=== PATIENT | female | born 1935 | race Caucasian/White ===

== ENCOUNTER 2020-06-14 14:33 | Inpatient (IN) ==
[2020-06-14] MEDS ORDERED: cefTRIAXone SODIUM 1,000 MG/50 ML BAG IV STA (15:16)
--- NOTE | 2020-06-14 15:20 | Emergency Department Note ---
Impression & Plan Acute pyelonephritis, Leukocytosis, Acute confusion, Acute right flank pain, Fever ED Provider Note NAME: RHONDA JEREZ AGE: 84 SEX: F : 1935 ARRIVES VIA: Ambulance INFORMANT: [Patient][daughter, staff] ED PROVIDER(S): [Jose Alonzo MD] CHIEF COMPLAINT: Fever, confusion HISTORY OF PRESENT ILLNESS: The patient is a an 84-year-old female who presents to the ER with a fever, some confusion and right flank pain. She had a strong smell to her urine. She seemed in pain when she urinated today. History from the patient is difficult as she does have some dementia. Most of the history was provided by staff and by her daughter. Patient does have a history of UTI, the family is concerned that she has this issue again. She has not fallen. She has not had cough or congestion or shortness of breath. The patient currently denies any pain. Of note, no further history obtainable given her dementia. REVIEW OF SYSTEMS: Unobtainable given her dementia. PMHx/PSHx: See Below SOCIAL HISTORY: See Below. PHYSICAL EXAM: GENERAL: Patient is in no acute distress. HEENT: No acute trauma, normocephalic atraumatic, mucous membranes moist, no nasal congestion, no scleral icterus. NECK: No stridor, no adenopathy, no meningismus, trachea is midline. LUNGS: Clear to auscultation bilaterally, no wheeze, no rhonchi, breath sounds equal. HEART: There is an irregular rhythm, no murmurs, the rate is normal. Back: Bilateral flank discomfort to percussion. ABDOMEN: Soft, nontender, bowel sounds positive, no hernias, no peritonitis. EXTREMITIES: No cyanosis or edema, full range of motion of all the joints without pain or difficulty, no signs for acute trauma. NEUROLOGIC: Awake and alert, confusion noted, no acute motor or sensory deficits, no focal weakness. SKIN: No rash, no jaundice, no diaphoresis. DIFFERENTIAL DIAGNOSIS: Infection, dehydration, metabolic abnormality, hypo/hyperglycemia, hydronephrosis, renal colic, pyelonephritis, UTI, sepsis, bacteremia, electrolyte disturbance, anemia, hypoxia, cardiac sources, intracerebral event, toxicologic, neurologic, as well as other pathologies. EMERGENCY DEPARTMENT COURSE/PROCEDURES: ECG: Indication was weakness. The ECG shows atrial fibrillation with some diffuse nonspecific ST change. The rate is 97. The QTc is 431. There are no PVCs. No ST elevation. No ECGs available for comparison. Continuous Cardiac Monitoring: An order was placed for continuous cardiac monitoring. The monitor shows a rate of 91 with atrial fibrillation. MEDICAL DECISION MAKING: There is a moderate leukocytosis at 14,000, this would be consistent with infection. There is a normal platelet count and hemoglobin. There is no significant electrolyte abnormality or kidney failure. Lactic acid level is not elevated making sepsis less likely. No worrisome liver enzyme elevation. TSH was slightly low. ECG shows atrial fibrillation, no acute ischemia. Cardiac enzyme testing x1 is not consistent with acute cardiac injury. Urinalysis is consistent with infection. Chest film does not show pneumonia or pneumothorax. There was no CHF. Abdominal and pelvis CT shows a possible proximal right u reteral stone with a double collecting system on the right. No hydronephrosis. The patient presents with fever, confusion, some back pain and urinary burning. She appears to have pyelonephritis by work-up. The possibility of a ureteral stone was also suggested. Given the fever, given the confusion, given the white count elevation, I do think a hospital stay is warranted. The patient received IV saline for hydration, she was given IV ceftriaxone. She does seem to be resting comfortably. I spoke to the patient and her daughter, I spoke with case management. The on- call hospitalist was consulted. Past Med/Surg History Medical History Atrial fibrillation Dementia Hypothyroidism Surgical History Surgical history unknown Social History Smoking Status: Never smoker marital status: Unknown Current Living Situation: Half-Way Feels Safe at Home: Yes Allergies Allergies Allergy/AdvReac Type Severity Reaction Status Date / Time latex Allergy Unknown Unknown Verified 06/14/20 17:44 Prkizrg-Qma-Hjs Reductase Allergy Unknown Unknown Verified 06/14/20 17:44 Inhibitor Home Meds Home Medications Medication Instructions Recorded Confirmed acetaminophen 325 - 650 mg PO Q4H PRN MDD 3 GMS 06/14/20 06/14/20 APAP/24 HOURS calcium citrate-vitamin D3 1 tab PO BID 06/14/20 06/14/20 [Calcium Citrate + D] citalopram 5 mg PO QAM 06/14/20 06/14/20 diltiazem HCl 120 mg PO QAM 06/14/20 06/14/20 fenofibrate nanocrystallized 145 mg PO QAM 06/14/20 06/14/20 folic acid 2 mg PO QAM 06/14/20 06/14/20 levothyroxine 75 mcg PO QAM 06/14/20 06/14/20 rivaroxaban [Xarelto] 15 mg PO QAM 06/14/20 06/14/20 tramadol 25 mg PO Q4H PRN 06/14/20 06/14/20 Results & Data (ED) Vital Signs Vital Signs - 24 hr 06/14/20 14:40 06/14/20 15:30 06/14/20 17:03 Temperature 37.3 C Temperature Source Oral Pulse Rate 72 Pulse Rate [Right] 102 H 91 H Respiratory Rate 20 20 20 Respiratory Effort / Characteristics Non-Labored Non-Labored Respiratory Depth Normal Normal Blood Pressure 156/82 H Blood Pressure [Right Arm] 172/131 H 148/87 H Blood Pressure Mean 106 Blood Pressure Mean [Right Arm] 144 107 Pulse Oximetry 93 95 95 Oxygen Delivery Method Room Air Room Air Room Air Sepsis Recent Fever Within 48 Hours No Sepsis New/Unexplained Change in Mental Status Yes Sepsis Action Taken by Nursing No Action Required 06/14/20 17:54 Temperature Temperature Source Pulse Rate Pulse Rate [Right] 102 H Respiratory Rate 24 Respiratory Effort / Characteristics Non-Labored Respiratory Depth Normal Blood Pressure Blood Pressure [Right Arm] 142/77 H Blood Pressure Mean Blood Pressure Mean [Right Arm] 98 Pulse Oximetry 93 Oxygen Delivery Method Room Air Sepsis Recent Fever Within 48 Hours Sepsis New/Unexplained Change in Mental Status Sepsis Action Taken by Half-Way Medications Current Medication List: was personally reviewed by me Laboratory Data Attestation: I reviewed the patient's lab results. Result diagrams: 06/14/20 16:19 06/14/20 16:19 Lab Results 06/14/20 06/14/20 06/14/20 Range/Units 16:00 16:19 16:19 WBC 14.45 H (4.8-10.8) K/uL RBC 4.77 (4.2-5.4) M/uL Hgb 14.3 (12.0-16.0) g/dL Hct 42.8 (37-47) % MCV 89.7 (80-100) fL MCH 30.0 (25-34) pg MCHC 33.4 (32-36) g/dL RDW Std Deviation 42.4 (36.4-46.3) fL RDW Coeff of John 12.9 (11.5-14.5) % Plt Count 365 (130-400) K/uL MPV 9.9 (7.4-10.4) fL Immature Gran % (Auto) 0.3 % Neut % (Auto) 82.5 % Lymph % (Auto) 5.6 % Stanley % (Auto) 11.4 % Eos % (Auto) 0.1 % Baso % (Auto) 0.1 % Neut # (Auto) 11.92 H (1.4-6.5) K/uL Lymph # (Auto) 0.81 L (1.2-3.4) K/uL Stanley # (Auto) 1.65 H (0.11-0.59) K/uL Eos # (Auto) 0.01 (0-0.5) K/uL Baso # (Auto) 0.02 (0-0.2) K/uL Immature Gran # (Auto) 0.04 H (0.00-0.02) K/uL Sodium (136-145) mmol/L Potassium (3.5-5.1) mmol/L Chloride (98-107) mmol/L Carbon Dioxide (21-32) mmol/L Anion Gap (3-11) BUN (7-18) mg/dl Creatinine (0.6-1.2) mg/dl Est Cr Clr Drug Dosing Est GFR ( Amer) Est GFR (Non-Af Amer) BUN/Creatinine Ratio (10-20) Glucose (70-99) mg/dl Lactate 1.8 (0.4-2.0) mmol/L Calcium (8.5-10.1) mg/dl Magnesium (1.8-2.4) mg/dl Total Bilirubin (0.2-1) mg/dl AST (15-37) U/L ALT (12-78) U/L Alkaline Phosphatase (45-117) U/L Troponin I (0-0.045) ng/ml Total Protein (6.4-8.2) gm/dl Albumin (3.4-5.0) gm/dl Globulin (2.5-4.0) gm/dl Albumin/Globulin Ratio (0.9-2) TSH (0.300-4.500) uIu/ml Free T4 (0.8-1.6) ng/dl Urine Color Yellow Urine Appearance Cloudy A (Clear) Urine pH 7.0 (4.5-7.5) Ur Specific [place] 1.015 (1.000-1.030) Urine Protein Negative (Negative) Urine Glucose (UA) Negative (Negative) Urine Ketones Negative (Negative) Urine Blood 2+ H (Negative) Urine Nitrite Positive A (Negative) Urine Bilirubin Negative (Negative) Urine Urobilinogen Negative (Negative) Ur Leukocyte Esterase Trace H (Negative) Urine WBC (Auto) 1-5 (0-5) /hpf Urine RBC (Auto) 10-30 H (0-4) /hpf U Hyaline Cast (Auto) 0 (0-5) /lpf U Epithel Cells (Auto) 5-10 H (0-5) /lpf Urine Bacteria (Auto) 4+ H (Negative) 06/14/20 Range/Units 16:19 WBC (4.8-10.8) K/uL RBC (4.2-5.4) M/uL Hgb (12.0-16.0) g/dL Hct (37-47) % MCV (80-100) fL MCH (25-34) pg MCHC (32-36) g/dL RDW Std Deviation (36.4-46.3) fL RDW Coeff of John (11.5-14.5) % Plt Count (130-400) K/uL MPV (7.4-10.4) fL Immature Gran % (Auto) % Neut % (Auto) % Lymph % (Auto) % Stanley % (Auto) % Eos % (Auto) % Baso % (Auto) % Neut # (Auto) (1.4-6.5) K/uL Lymph # (Auto) (1.2-3.4) K/uL Stanley # (Auto) (0.11-0.59) K/uL Eos # (Auto) (0-0.5) K/uL Baso # (Auto) (0-0.2) K/uL Immature Gran # (Auto) (0.00-0.02) K/uL Sodium 136 (136-145) mmol/L Potassium 3.6 (3.5-5.1) mmol/L Chloride 101 (98-107) mmol/L Carbon Dioxide 28 (21-32) mmol/L Anion Gap 7.0 (3-11) BUN 18 (7-18) mg/dl Creatinine 1.19 (0.6-1.2) mg/dl Est Cr Clr Drug Dosing Not Reportable Est GFR ( Amer) 48.9 Est GFR (Non-Af Amer) 42.2 BUN/Creatinine Ratio 15.1 (10-20) Glucose 133 H (70-99) mg/dl Lactate (0.4-2.0) mmol/L Calcium 9.8 (8.5-10.1) mg/dl Magnesium 2.0 (1.8-2.4) mg/dl Total Bilirubin 0.7 (0.2-1) mg/dl AST 16 (15-37) U/L ALT 15 (12-78) U/L Alkaline Phosphatase 58 (45-117) U/L Troponin I < 0.015 (0-0.045) ng/ml Total Protein 8.0 (6.4-8.2) gm/dl Albumin 3.5 (3.4-5.0) gm/dl Globulin 4.5 H (2.5-4.0) gm/dl Albumin/Globulin Ratio 0.8 L (0.9-2) TSH 0.249 L (0.300-4.500) uIu/ml Free T4 1.78 H (0.8-1.6) ng/dl Urine Color Urine Appearance (Clear) Urine pH (4.5-7.5) Ur Specific [place] (1.000-1.030) Urine Protein (Negative) Urine Glucose (UA) (Negative) Urine Ketones (Negative) Urine Blood (Negative) Urine Nitrite (Negative) Urine Bilirubin (Negative) Urine Urobilinogen (Negative) Ur Leukocyte Esterase (Negative) Urine WBC (Auto) (0-5) /hpf Urine RBC (Auto) (0-4) /hpf U Hyaline Cast (Auto) (0-5) /lpf U Epithel Cells (Auto) (0-5) /lpf Urine Bacteria (Auto) (Negative) Administered Medications Discontinued Medications Sodium Chloride (Nss) 500 mls @ 999 mls/hr IV .Q31M JODEE Stop: 06/14/20 16:00 Last Infusion: 06/14/20 17:17 Dose: 0 mls/hr Documented by: [id number] Admin: 06/14/20 16:45 Dose: 999 mls/hr Documented by: [id number] Ceftriaxone Sodium (Rocephin) 1,000 mg in 50 mls @ 100 mls/hr IV NOW STA Stop: 06/14/20 15:45 Last Infusion: 06/14/20 17:17 Dose: 0 mls/hr Documented by: [id number] Admin: 06/14/20 16:45 Dose: 100 mls/hr Documented by: [id number] Imaging Data Radiologist's Impression: SINGLE VIEW CHEST CLINICAL HISTORY: Generalized weakness. FINDINGS: An AP, portable, upright chest radiograph is obtained. No prior studies are available for comparison at the time of dictation. The examination is degraded by portable technique and patient rotation. The heart is mildly enlarged noting atherosclerotic calcification of the thoracic aorta. The pulmonary vasculature is noncongested. Question trace pleural effusions with left basilar atelectasis. No airspace consolidation is identified typical for pneumonia. No pneumothorax is seen. The skeletal structures are osteopenic. The bony thorax is grossly intact. IMPRESSION: 1. Mild cardiac enlargement with no acute cardiopulmonary abnormality. 2. Question trace pleural effusions. ABDOMEN AND PELVIS CT WITHOUT CONTRAST CT DOSE: 325.92 mGy.cm HISTORY: Acute right-sided flank pain right flank pain TECHNIQUE: Multiaxial CT images of the abdomen and pelvis were performed without contrast. A dose lowering technique was utilized adhering to the principles of ALARA. COMPARISON STUDY: Chest radiograph 06/14/2020, lumbar spine radiographs 04/23/2020. FINDINGS: Motion degraded exam. Trace pleural effusions. Moderate cardiomegaly with coronary artery calcifications. Mild subsegmental bibasilar ectasis. There is no pneumatosis or pneumoperitoneum. Limited evaluation of the solid abdominal organs without the use of IV contrast. Within the limitations of the study, the spleen, pancreas, adrenal glands, gallbladder and liver appear unremarkable. Probable cyst of the superior pole right kidney, 2.5 cm. Limited evaluation of the kidneys and ureters secondary to motion artifact. There is a 4 mm calcification medial to the right kidney. It is difficult to determine this is outside of the urinary tract or within the right ureterovesicular junction. 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 No appreciable hydronephrosis or hydroureter. Urinary bladder wall thickening with partial distention. Hystere ctomy. Indeterminate 2.2 x 2.4 cm left adnexal cystic lesion. Calcified plaque of the abdominal aorta with tortuosity. No adenopathy. No bowel obstruction. Colonic diverticulosis without acute diverticulitis. Mild fecal retention. Normal appendix. Unremarkable soft tissues. Lumbar levoscoliosis. De generative changes of the spine, pelvis and hips. IMPRESSION: 1. Limited exam secondary to motion artifact. 2. 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 Correlate with urinalysis findings. There is no significant hydroureter or hydronephrosis. 3. Trace pleural effusions. 4. Cardiomegaly. 5. No bowel obstruction or bowel wall thickening. Normal appendix. 6. Colonic diverticulosis. Blood Pressure Blood Pressure Findings: Elevated blood pressure Blood Pressure Disposition: further management by hospitalist Discharge Plan Visit Data Chief Complaint: Urinary Symptoms ED Provider: Jose Alonzo Discharge Problem: Acute pyelonephritis, Leukocytosis, Acute confusion, Acute right flank pain, Fever Patient Disposition: Admitted As Inpatient Condition: Good Forms Stand Alone Forms: [facility] [employer] Prescriptions Prescriptions: No Action acetaminophen 325 mg Tablet 325 - 650 mg PO Q4H MDD 3 GMS APAP/24 HOURS PRN (Reason: Fever Or Pain) RF: 0 citalopram 10 mg Tablet 5 mg PO QAM RF: 0 tramadol 50 mg Tablet 25 mg PO Q4H PRN (Reason: Pain) RF: 0 levothyroxine 75 mcg Tablet 75 mcg PO QAM RF: 0 folic acid 1 mg Tablet 2 mg PO QAM RF: 0 diltiazem HCl 120 mg Tablet Extended Release 24 Hr 120 mg PO QAM RF: 0 calcium citrate-vitamin D3 [Calcium Citrate + D] 315-200 mg-unit Tablet 1 tab PO BID RF: 0 fenofibrate nanocrystallized 145 mg Tablet 145 mg PO QAM RF: 0 Xarelto 15 mg Tablet 15 mg PO QAM RF: 0 Referrals Referrals: Darci, [Primary Care Provider] - Discharge Problem: Leukocytosis Qualifiers: Leukocytosis type: unspecified Qualified Code(s): D72.829 - Elevated white blood cell count, unspecified Fever Qualifiers: Fever type: unspecified Qualified Code(s): R50.9 - Fever, unspecified
[2020-06-14] MEDS ORDERED: SODIUM CHLORIDE 0.9% 500 ML IV SCH (15:30)
--- NOTE | 2020-06-14 15:37 | XRay Report ---
SINGLE VIEW CHEST CLINICAL HISTORY: Generalized weakness. FINDINGS: An AP, portable, upright chest radiograph is obtained. No prior studies are available for c omparison at the time of dictation. The examination is degraded by portable technique and patient rot ation. The heart is mildly enlarged noting atherosclerotic calcification of the thoracic aorta. The pulmonary vasculature is noncongested. Question trace pleural effusions with left basilar atelectasis . No airspace consolidation is identified typical for pneumonia. No pneumothorax is seen. The skeleta l structures are osteopenic. The bony thorax is grossly intact. IMPRESSION: 1. Mild cardiac enlargement with no acute cardiopulmonary abnormality. 2. Question trace pleural effusions. ACT 112: Negative or not required by law. Electronically signed by: Jose Alba M.D. 06/14/2020 3:36 PM
[2020-06-14 16:14] LABS: Appearance Urine Cloudy (Clear); Bacteria Urine Automated 4+ (Negative); Bilirubin Urine Negative (Negative); Blood Urine 2+ (Negative); Cast Urine Automated 0 /lpf (0-5); Color Urine Yellow; Glucose Urine UA Negative (Negative); Ketones Urine Negative (Negative); Leukocyte Esterase Urine Trace (Negative); Nitrite Urine Positive (Negative); Protein Urine Negative (Negative); Specific Gravity Urine 1.015 (1.000-1.030); Urobilinogen Urine Negative (Negative)
[2020-06-14 16:40] LABS: Basophils # (auto) 0.02 K/uL (0-0.2); Basophils % (auto) 0.1 %; Eosinophils # (auto) 0.01 K/uL (0-0.5); Eosinophils % (auto) 0.1 %; Hematocrit (blood only) 42.8 % (37-47); Hemoglobin 14.3 g/dL (12.0-16.0); Immature Granulocytes # (auto) 0.04 K/uL (0.00-0.02); Immature Granulocytes % (auto) 0.3 %; Lymphocytes # (auto) 0.81 K/uL (1.2-3.4); Lymphocytes % (auto) 5.6 %; Mean Corpuscular Hgb Conc 33.4 g/dL (32-36); Mean Corpuscular Volume 89.7 fL (80-100); Mean Platelet Volume 9.9 fL (7.4-10.4); Monocytes # (auto) 1.65 K/uL (0.11-0.59); Monocytes % (auto) 11.4 %; Neutrophils # (auto) 11.92 K/uL (1.4-6.5); Neutrophils % (auto) 82.5 %; Platelet Count 365 K/uL (130-400); RDW Coefficient of Variation 12.9 % (11.5-14.5); RDW Standard Deviation 42.4 fL (36.4-46.3); Red Blood Count 4.77 M/uL (4.2-5.4); White Blood Count 14.45 K/uL (4.8-10.8)
[2020-06-14 16:55] LABS: Alanine Aminotransferase 15 U/L (12-78); Albumin Level 3.5 gm/dl (3.4-5.0); Aspartate Aminotransferase 16 U/L (15-37); BUN Creatinine Ratio 15.1 (10-20); Blood Urea Nitrogen 18 mg/dl (7-18); Calcium 9.8 mg/dl (8.5-10.1); Carbon Dioxide 28 mmol/L (21-32); Chloride 101 mmol/L (98-107); Est GFR (African American) 48.9; Est GFR (Non-African American) 42.2; Glucose 133 mg/dl (70-99); Potassium 3.6 mmol/L (3.5-5.1); Sodium 136 mmol/L (136-145)
--- NOTE | 2020-06-14 16:58 | CT Scan Report ---
ABDOMEN AND PELVIS CT WITHOUT CONTRAST CT DOSE: 325.92 mGy.cm HISTORY: Acute right-sided flank pain right flank pain TECHNIQUE: Multiaxial CT images of the abdomen and pelvis were performed without contrast. A dose lo wering technique was utilized adhering to the principles of ALARA. COMPARISON STUDY: Chest radiograph 06/14/2020, lumbar spine radiographs 04/23/2020. FINDINGS: Motion degraded exam. Trace pleural effusions. Moderate cardiomegaly with coronary artery calcificati ons. Mild subsegmental bibasilar ectasis. There is no pneumatosis or pneumoperitoneum. Limited evaluation of the solid abdominal organs without the use of IV contrast. Within the limitatio ns of the study, the spleen, pancreas, adrenal glands, gallbladder and liver appear unremarkable. Pro bable cyst of the superior pole right kidney, 2.5 cm. Limited evaluation of the kidneys and ureters s econdary to motion artifact. There is a 4 mm calcification medial to the right kidney. It is difficul t to determine this is outside of the urinary tract or within the right ureterovesicular junction. 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 No ap preciable hydronephrosis or hydroureter. Urinary bladder wall thickening with partial distention. Hys terectomy. Indeterminate 2.2 x 2.4 cm left adnexal cystic lesion. Calcified plaque of the abdominal aorta with tortuosity. No adenopathy. No bowel obstruction. Colonic diverticulosis without acute diverticulitis. Mild fecal retention. Normal appendix. Unremarkable sof t tissues. Lumbar levoscoliosis. Degenerative changes of the spine, pelvis and hips. IMPRESSION: 1. Limited exam secondary to motion artifact. 2. 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 Correlate with urinalysis findings. There is no significant hydroureter or hydronephrosis. 3. Trace pleural effusions. 4. Cardiomegaly. 5. No bowel obstruction or bowel wall thickening. Normal appendix. 6. Colonic diverticulosis. ACT 112: Negative or not required by law. The above report was generated using voice recognition software. It may contain grammatical, syntax o r spelling errors. Electronically signed by: Obed Hi M.D. 06/14/2020 4:56 PM
[2020-06-14 17:05] LABS: Albumin Globulin Ratio 0.8 (0.9-2); Alkaline Phosphatase 58 U/L (45-117); Bilirubin,Total 0.7 mg/dl (0.2-1); Globulin 4.5 gm/dl (2.5-4.0); Thyroid Stimulating Hormone 0.249 uIu/ml (0.300-4.500); Troponin I < 0.015 ng/ml (0-0.045)
[2020-06-14 17:22] LABS: T4 Free Thyroxine 1.78 ng/dl (0.8-1.6)
--- NOTE | 2020-06-14 17:46 | History & Physical Report ---
Date of Service June 14, 2020 Assessment & Plan (1) Sepsis: Mostly resuscitated in ER. Some additional fluids ordered for overnight to aid in RVR. Cont ceftriazone pending clinical improvement and culture results. Lactate 1.8 (2) Acute pyelonephritis: UA positive. Cont ceftriaxone pending urine culture results and clinical improvement. (3) Acute metabolic encephalopathy: 2/2 sepsis and infection. Treating underlying illness. High risk for disorientation and sundowning overnight. Keep good day/night cycles. Reorient as needed. Avoid chemical restraint unless very last resort. (4) Chronic atrial fibrillation: slight elevation in HR to low 100s 2/2 acute infection and sepsis. Cont Dilt and Xarelto. (5) Dementia: ADR to [place] and donepezil in the past. Cont vit D supplementation and frequent reorientation. (6) Hypothyroidism: Cont Synthroid per home regimen. (7) Nephrolithiasis: consult Urology to consider this kidney stone in the setting of infection. No hydro seen. (8) Depression: Cont Celexa per home regimen. (9) DVT prophylaxis: Xarelto/SCDs DNR per discussion with daughter/POA Dispo-admit to telemetry DO Anam Walker Hospitalist History of Present Illness Chief Complaint: confusion, back pain Primary Care Provider: Rodolfo Gomes 84 yo F with dementia who presents per daughter's request to staff at [facility] for evaluation of progressive confusion and weakness of last few days. Daughter waves to her through the window each day and noticed these changes. For instance, the patient is a hearty eater and daughter noticed that her food tray was sitting across the room. The patient did not get up to obtain her tray. However, when staff came in and repositioned the food near her, she was eager to get up and ate heartily. Urine was foul-smelling and she was communicating flank pain. She is disoriented at baseline, however, daughter feels she is more confused than normal. Also daughter reported significant elevation in her pulse earlier, the patient was reportedly febrile prior to arrival. She has an elevation in WBC and a clear urinary infection with CVA tenderness bilaterally. She received 500cc saline and ceftriaxone 1gm IV. Lactate was normal. Daughter was at bedside and plan for admission was explained; she verbalized understanding. Allergies Allergy/AdvReac Type Severity Reaction Status Date / Time latex Allergy Unknown Unknown Verified 06/14/20 17:44 Fotqodt-Qxe-Qvr Reductase Allergy Unknown Unknown Verified 06/14/20 17:44 Inhibitor Home Medications Home Medications Medication Instructions Recorded Confirmed Type acetaminophen 325 - 650 mg PO Q4H PRN MDD 3 GMS 06/14/20 06/14/20 History APAP/24 HOURS calcium citrate-vitamin D3 1 tab PO BID 06/14/20 06/14/20 History [Calcium Citrate + D] citalopram 5 mg PO QAM 06/14/20 06/14/20 History diltiazem HCl 120 mg PO QAM 06/14/20 06/14/20 History fenofibrate nanocrystallized 145 mg PO QAM 06/14/20 06/14/20 History folic acid 2 mg PO QAM 06/14/20 06/14/20 History levothyroxine 75 mcg PO QAM 06/14/20 06/14/20 History rivaroxaban [Xarelto] 15 mg PO QAM 06/14/20 06/14/20 History tramadol 25 mg PO Q4H PRN 06/14/20 06/14/20 History Past Med/Surg History Medical History (Updated 06/14/20 @ 20:11 by Radha Ang DO) Atrial fibrillation Dementia Depression H/O: rheumatic fever Hypothyroidism Surgical History S/P DARRELL (total abdominal hysterectomy) Status post Mohs surgery Family History Sister Colorectal cancer Ovarian cancer Social History Smoking Status: Never smoker Hx Alcohol Use: Yes (rare) marital status: Unknown Current Living Situation: Snf Feels Safe at Home: Yes Review of Systems Review of Systems: Unobtainable due to mental health condition Physical Exam Physical Exam: CONSTITUTIONAL: WNWD, vitals as above, generally well- appearing EYES: pupils are round and equal bilaterally, normal conjunctivae, no scleral icterus ENT: oropharynx clear NECK: trachea midline RESPIRATORY: clear to auscultation bilaterally, no crackles, rales or wheezes, normal respiratory effort CARDIOVASCULAR: regular rate and rhythm, S1 and 2 heard without murmurs, gallops or rubs, no JVD, no peripheral edema GASTROINTESTINAL: normal bowel sounds, soft, nontender, nondistended. +CVA tenderness bilaterally MUSCULOSKELETAL: strength 5/5 throughout, head is normocephalic and atraumatic SKIN: warm and dry NEUROLOGIC: patellar DTRs 2+ bilat. No facial palsy, no dysarthria. Touch, pain and proprioception normal. CN 2-12 grossly intact, normal cognition, normal speech, no gross neuro deficits. Altered mental status. PSYCHIATRIC: alert cooperative disoriented. Results & Data Results & Data ([facility]) Vital Signs (Past 12 Hours) Vital Signs Temp Pulse Pulse Resp BP BP Pulse Ox 06/14/20 17:03 91 H 20 148/87 H 95 06/14/20 15:30 102 H 20 172/131 H 95 06/14/20 14:40 37.3 C 72 20 156/82 H 93 Laboratory Results Short CBC 06/14/20 Range/Units 16:19 WBC 14.45 H (4.8-10.8) K/uL Hgb 14.3 (12.0-16.0) g/dL Hct 42.8 (37-47) % Plt Count 365 (130-400) K/uL BMP 06/14/20 16:19 Sodium 136 Potassium 3.6 Chloride 101 Carbon Dioxide 28 BUN 18 Creatinine 1.19 Glucose 133 H Calcium 9.8 Cardiac Enzymes 06/14/20 Range/Units 16:19 Troponin I < 0.015 (0-0.045) ng/ml Liver Function 06/14/20 Range/Units 16:19 Total Bilirubin 0.7 (0.2-1) mg/dl AST 16 (15-37) U/L ALT 15 (12-78) U/L Alkaline Phosphatase 58 (45-117) U/L Albumin 3.5 (3.4-5.0) gm/dl Urine 06/14/20 Range/Units 16:00 Urine Color Yellow Urine Appearance Cloudy A (Clear) Urine pH 7.0 (4.5-7.5) Ur Specific [place] 1.015 (1.000-1.030) Urine Protein Negative (Negative) Urine Glucose (UA) Negative (Negative) Medications Administered NSS + ceftriaxone 1gm IV ECG Rhythm: atrial fibrillation Code Status & VTE Plan Code Status DNR per [facility] records. VTE Prophylaxis Plan VTE Prophylaxis will be ordered: Yes
[2020-06-14] MEDS ORDERED: ACETAMINOPHEN 325 MG TAB PO PRN ×2 (18:55→22:53)
[2020-06-14] MEDS ORDERED: POLYETHYLENE (MIRALAX) 17 GM PACK PO PRN (22:53)
[2020-06-15] MEDS: D5NSS + 20MEQ KCL 20 MEQ/1,000 ML BAG IV SCH ×3 (00:07→16:46)
[2020-06-15] MEDS: TRAMADOL HCL 50 MG TABLET PO PRN ×2 (00:07→04:27)
[2020-06-15] MEDS: PHENAZOPYRIDINE HCL 100 MG TAB PO PRN ×3 (00:12→13:18)
[2020-06-15] MEDS: CALCIUM 600MG + VIT D 400 IU TAB PO SCH ×3 (00:21→20:11)
[2020-06-15] MEDS ORDERED: LEVOTHYROXINE SODIUM 75 MCG TABLET PO SCH (06:30)
[2020-06-15 06:42] LABS: Hematocrit (blood only) 40.9 % (37-47); Hemoglobin 13.5 g/dL (12.0-16.0); Mean Corpuscular Hemoglobin 29.5 pg (25-34); Mean Corpuscular Volume 89.5 fL (80-100); Mean Platelet Volume 10.4 fL (7.4-10.4); Platelet Count 325 K/uL (130-400); RDW Coefficient of Variation 12.8 % (11.5-14.5); RDW Standard Deviation 41.9 fL (36.4-46.3); Red Blood Count 4.57 M/uL (4.2-5.4); White Blood Count 13.16 K/uL (4.8-10.8)
--- NOTE | 2020-06-15 07:19 | Electrocardiogram Report ---
Test Reason : Blood Pressure : / mmHG Vent. Rate : 097 BPM Atrial Rate : 468 BPM P-R Int : 000 ms QRS Dur : 088 ms QT Int : 340 ms P-R-T Axes : 000 -12 -57 degrees QTc Int : 431 ms Poor data quality, interpretation may be adversely affected Atrial fibrillation Low voltage QRS Nonspecific ST and T wave abnormality Abnormal ECG No previous ECGs available Confirmed by Anthony Suarez ([id number]) on 06/15/2020 7:18:51 AM Referred By: Darci Confirmed By:Anthony Suarez
[2020-06-15 07:21] LABS: BUN Creatinine Ratio 12.9 (10-20); Calcium 9.1 mg/dl (8.5-10.1); Est GFR (African American) 74.5; Est GFR (Non-African American) 64.3; Magnesium 1.9 mg/dl (1.8-2.4); Potassium 3.5 mmol/L (3.5-5.1)
[2020-06-15] MEDS ORDERED: dilTIAZem ER 120 MG CAPCR PO SCH (09:00)
[2020-06-15] MEDS: FOLIC ACID 1 MG TAB PO SCH (09:35)
[2020-06-15] MEDS: CITALOPRAM 20 MG TAB PO SCH (09:35)
[2020-06-15] MEDS: FENOFIBRATE NANOCRYSTALLIZED 145 MG TABLET PO SCH (09:36)
--- NOTE | 2020-06-15 12:53 | Urology Consultation ---
Date of Consultation June 15, 2020 Assessment & Plan (1) Sepsis: Mostly resuscitated in ER. Some additional fluids ordered for overnight to aid in RVR. Cont ceftriazone pending clinical improvement and culture results. Lactate 1.8 (2) Acute pyelonephritis: UA positive for E Coli. Cont ceftriaxone pending urine culture results and clinical improvement. (3) Nephrolithiasis: After reviewing the CT scan multiple times I'm not certain that this is a ureteral stone due to the lack of hydronephrosis and obstruction. I had a long conversation with her daughter discussing the options of intervening with a stent if this is a stone vs. following her clinically to see if she improves with antibiotics. She understands that the CT is equivacol for a stone. At this point, we are going to follow her clinical picture. I will check on her tomorrow again, if she doesn't improve or her condition worsens we may need to consider a right ureteral stent. History of Present Illness Attending Physician: Fab Bruner MD History of Present Illness Patient's daughter provides her history today. She reports that she was very sleepy at the half-way and then was sent to the ER both due to change in her vital signs and mental status changes. The patient is sleeping currently in the room. Her daughter states she has had numerous UTIs in the past. She also has dementia. +hysterectomy, 2 vaginal deliveries. No history of stones prior or any renal surgeries. She was febrile here - urine + E Coli. CT scan completed showing a possible stone on the right - there is no hydronephrosis. It's very difficult to follow her ureter - I'm not certain that the calcification is within the collecting system. She has some suprapubic pain but no flank pain. She has chronic back pain with even her foot dropping at times - this is long standing. Allergies Allergy/AdvReac Type Severity Reaction Status Date / Time latex Allergy Unknown Unknown Verified 06/14/20 17:44 [id number]-[id number] Reductase Allergy Unknown Unknown Verified 06/14/20 17:44 Inhibitor Home Medications Home Medications Medication Instructions Recorded Confirmed Type acetaminophen 325 - 650 mg PO Q4H PRN MDD 3 GMS 06/14/20 06/14/20 History APAP/24 HOURS calcium citrate-vitamin D3 1 tab PO BID 06/14/20 06/14/20 History [Calcium Citrate + D] citalopram 5 mg PO QAM 06/14/20 06/14/20 History diltiazem HCl 120 mg PO QAM 06/14/20 06/14/20 History fenofibrate nanocrystallized 145 mg PO QAM 06/14/20 06/14/20 History folic acid 2 mg PO QAM 06/14/20 06/14/20 History levothyroxine 75 mcg PO QAM 06/14/20 06/14/20 History rivaroxaban [Xarelto] 15 mg PO QAM 06/14/20 06/14/20 History tramadol 25 mg PO Q4H PRN 06/14/20 06/14/20 History Patient History Medical History (Updated 06/14/20 @ 20:11 by Radha Ang DO) Atrial fibrillation Dementia Depression H/O: rheumatic fever Hypothyroidism Surgical History S/P DARRELL (total abdominal hysterectomy) Status post Mohs surgery Family History Sister Colorectal cancer Ovarian cancer Social History Smoking Status: Never smoker Second Hand Exposure: Yes; Do You Dip or Chew Tobacco: No; Tobacco Cessation Education Requested by Patient: No Hx Alcohol Use: No Hx Substance Use: No Preferred Language: Hungarian Communication Ability: Impaired Communication Ability Comment: unabe to verbalize at times r/t dementia [employer] Required: No Beliefs That Will Affect Care: None marital status: Unknown Current Living Situation: Personal Care Facility Current Living Situation Comment: at [facility] Other Information That Helps Us Care for You: No Feels Safe at Home: Yes Safety Concerns: Feels Safe At This Time Review of Systems Review of Systems: Unobtainable due to cognitive status Physical Exam Physical Exam: she is sleeping during my time in the room - daughter reports that she has been awake on and off and not complaining of pain Constitutional: comfortable Results & Data ([facility]) Vital Signs (Past 12 Hours) Vital Signs Temp Pulse Pulse Resp BP Pulse Ox 06/15/20 11:27 36.3 C L 87 18 116/77 92 06/15/20 07:30 104 H 06/15/20 07:17 36.5 C 80 18 86/63 L 95 06/15/20 04:00 36.8 C 110 H 20 135/87 95 PG Care Time/CCT Total # of Minutes Spent Total Time Spent with Patient: Total time spent is greater than 50% in coordination of care (as documented) at patient's floor/unit and/or counseling patient: Coding Level of Care Code 80875 Initial Inpt Care Lvl 3 Diagnoses Sepsis A41.9 Acute pyelonephritis N10 Nephrolithiasis N20.0 Time Spent (min) 30
[2020-06-15] MEDS: cefTRIAXone SODIUM 1,000 MG in DEXTROSE 5% 50 ML IV SCH (16:46)
[2020-06-15] MEDS: RIVAROXABAN 15 MG TAB PO SCH (16:47)
--- NOTE | 2020-06-15 16:50 | Hospitalist Progress Note ---
Date of Service June 15, 2020 Assessment & Plan (1) Sepsis: (2) Acute pyelonephritis: Meet sepsis criteria on admission with tachycardia, elevated WBC UA positive for nitrite, Leukocytes and bacteria CT abd/pelvis showed renal collecting system on the right with an equivocal calculus of the superior pole moiety ureterovesicular junction, difficult to evaluate secondary to aforementioned limitations. WBC 14K on admission Continue IVF ceftriaxone Urine cx pending (3) Acute metabolic encephalopathy: Mostly due to acute illness Treating underlying illness. Keep good day/night cycles and reorient as needed. Avoid chemical restraint unless very last resort. (4) Chronic atrial fibrillation: Continue diltiazem and Xarelto. Continue monitor (5) Dementia: ADR to Nameda and donepezil in the past. Cont vit D supplementation and frequent reorientation. (6) Hypothyroidism: Cont Synthroid per home regimen. (7) Nephrolithiasis: CT abd pelvis showed 4 mm calcification medial to the right kidney. No hydronephrosis or hydroureter. Urology on board recommended conservative management with abx. If worsening or become febrile or painful, might consider for stent placement Continue monitor (8) Depression: Cont Celexa per home regimen. (9) DVT prophylaxis: Xarelto/SCDs CODE STATUS DNR Admission and Anticipated Discharge Date Admission Date: June 14, 2020 Subjective Pt was seen and examined Sitting in [place] with no distress Spoke with daughter today at bedside Pt denies any complaint Physical Exam Physical Exam: General- No acute distress Head- atraumatic Eyes- PERRL, EOMI, ENT- oropharynx clear Neck- supple, no JVD Lungs- clear to auscultation Heart- irregular rhythm; no murmur Abdomen- normal bowel sounds, soft, nontender Extremities- no calf tenderness Neuro- awake, confused Skin- warm & dry Results & Data Results & Data ([facility]) Vital Signs (Past 12 Hours) Vital Signs Temp Pulse Pulse Resp BP Pulse Ox 06/15/20 15:25 37.2 C 92 H 19 110/83 90 06/15/20 11:27 36.3 C L 87 18 116/77 92 06/15/20 07:30 104 H 06/15/20 07:17 36.5 C 80 18 86/63 L 95
[2020-06-16] MEDS ORDERED: ALBUMIN 25% 50 ML IV ONE (02:21)
[2020-06-16] MEDS ORDERED: MAGNESIUM SULFATE / D5W 1 GM/100 ML BAG IV ONE (02:21)
[2020-06-16] MEDS ORDERED: POTASSIUM CHLORIDE PWD 20 MEQ PACK PO STA (02:21)
[2020-06-16] MEDS ORDERED: DIGOXIN 250 MCG in SYRINGE 9 ML IV STA ×2 (02:26→05:25)
[2020-06-16] MEDS ORDERED: OLANZapine 10 MG/2.1 ML SDV IM STA ×2 (02:29→05:24)
[2020-06-16] MEDS ORDERED: METOPROLOL TARTRATE 1 MG/ML VIAL IV STA ×3 (02:29→06:26)
[2020-06-16 02:58] LABS: Basophils # (auto) 0.02 K/uL (0-0.2); Basophils % (auto) 0.1 %; Eosinophils # (auto) 0.09 K/uL (0-0.5); Eosinophils % (auto) 0.7 %; Hematocrit (blood only) 40.8 % (37-47); Hemoglobin 13.7 g/dL (12.0-16.0); Immature Granulocytes # (auto) 0.04 K/uL (0.00-0.02); Immature Granulocytes % (auto) 0.3 %; Lymphocytes # (auto) 1.92 K/uL (1.2-3.4); Lymphocytes % (auto) 14.2 %; Mean Corpuscular Hemoglobin 29.9 pg (25-34); Mean Corpuscular Hgb Conc 33.6 g/dL (32-36); Mean Corpuscular Volume 89.1 fL (80-100); Mean Platelet Volume 9.9 fL (7.4-10.4); Monocytes # (auto) 1.91 K/uL (0.11-0.59); Monocytes % (auto) 14.1 %; Neutrophils # (auto) 9.52 K/uL (1.4-6.5); Neutrophils % (auto) 70.6 %; Platelet Count 372 K/uL (130-400); RDW Coefficient of Variation 12.7 % (11.5-14.5); RDW Standard Deviation 41.4 fL (36.4-46.3); Red Blood Count 4.58 M/uL (4.2-5.4)
[2020-06-16 03:21] LABS: BUN Creatinine Ratio 9.8 (10-20); Calcium 9.1 mg/dl (8.5-10.1); Creatinine Clr Calc Pharmacy 42.5 ml/min; Est GFR (African American) 71.4; Est GFR (Non-African American) 61.6; Magnesium 1.7 mg/dl (1.8-2.4); Potassium 4.1 mmol/L (3.5-5.1)
[2020-06-16] MEDS ORDERED: dilTIAZem HCl 5 MG/ML 5 ML VIAL IV STA ×2 (03:33→04:38)
[2020-06-16] MEDS: POTASSIUM CHLORIDE / WTR 10 MEQ/100 ML PLCT IV SCH ×2 (04:02→04:03)
[2020-06-16] MEDS: LEVOTHYROXINE SODIUM 50 MCG TABLET PO SCH (04:51)
[2020-06-16] MEDS ORDERED: ACETAMINOPHEN 1,000 MG/100 ML VIAL IV STA (05:31)
[2020-06-16] MEDS ORDERED: dilTIAZem ER 120 MG CAPCR PO SCH (06:25)
[2020-06-16] MEDS: CITALOPRAM 20 MG TAB PO SCH (08:17)
[2020-06-16] MEDS: PHENAZOPYRIDINE HCL 100 MG TAB PO PRN ×2 (08:17→16:36)
[2020-06-16] MEDS: CALCIUM 600MG + VIT D 400 IU TAB PO SCH ×2 (08:17→20:32)
[2020-06-16] MEDS: FOLIC ACID 1 MG TAB PO SCH (08:17)
[2020-06-16] MEDS: FENOFIBRATE NANOCRYSTALLIZED 145 MG TABLET PO SCH (08:17)
--- NOTE | 2020-06-16 14:57 | Urology Progress Note ---
Date of Service June 16, 2020 Assessment & Plan (1) Sepsis: Mostly resuscitated in ER. On abx with hospitalists service (2) Acute pyelonephritis: UA positive for E Coli. Sensitive to everything but ampicillin (3) Nephrolithiasis: Patient's WBC is still elevated today - I was hoping to see a decrease. I spoke with the daughter on the phone today regarding proceeding with a stent. They are hesitant to move forward with interventions if she doesn't need this. I don't feel comfortable not exploring the potential stone further. I have ordered a CT - urogram phase to see if we can delineate the calcification vs. stone. Her daughter know that we may need to move forward with a stent if this is still inconclusive and I think she will be willing to do this. NPO after midnight incase she needs to have a stent placed. Admission and Anticipated Discharge Date Admission Date: June 14, 2020 Subjective Patient is sleeping alone in the room. She opens her eyes but does not communicate. Nursing and her family reports that she was more awake earlier today. I did call the patient's daughter and she reports that after she gets the tramadol she is very sleepy. Otherwise, she does have some times where she is more anxious -- unsure if this is pain or sundowning. No blood in the urine. Review of Systems Review of Systems: Unobtainable due to cognitive status Physical Exam Constitutional: healthy appearing, comfortable and + lethargic Gastrointestinal (Abdomen): Percussion/Palpation: abdomen soft Results & Data ([facility]) Vital Signs (Past 12 Hours) Vital Signs Temp Pulse Pulse Resp BP BP Pulse Ox 06/16/20 11:14 36.4 C L 86 18 102/68 93 06/16/20 07:36 101 H 06/16/20 07:16 36.7 C 100 H 18 115/77 90 06/16/20 06:00 101 H 06/16/20 05:52 160 H 06/16/20 05:46 157 H 142/88 H 06/16/20 05:27 148 H 142/88 H 06/16/20 04:07 37.0 C 118 H 18 162/86 H 91 06/16/20 02:56 182 H 138/72 PG Care Time/CCT Total # of Minutes Spent Total Time Spent with Patient: Total time spent is greater than 50% in coordination of care (as documented) at patient's floor/unit and/or counseling patient: Coding Level of Care Code 90588 Inpt Consult Level 5 History Problem Focused Exam Problem Focused Medical Decision Making High Complexity Diagnoses Sepsis A41.9 Acute pyelonephritis N10 Nephrolithiasis N20.0 Time Spent (min) 30
[2020-06-16] MEDS: cefTRIAXone SODIUM 1,000 MG in DEXTROSE 5% 50 ML IV SCH (16:36)
[2020-06-16] MEDS: RIVAROXABAN 15 MG TAB PO SCH (16:36)
--- NOTE | 2020-06-16 17:57 | Hospitalist Progress Note ---
Date of Service June 16, 2020 Assessment & Plan (1) Sepsis: (2) Acute pyelonephritis: Meet sepsis criteria on admission with tachycardia, elevated WBC UA positive for nitrite, Leukocytes and bacteria CT abd/pelvis showed renal collecting system on the right with an equivocal calculus of the superior pole moiety ureterovesicular junction, difficult to evaluate secondary to aforementioned limitations. WBC 14K on admission Urine cx grew Ecoli Continue IVF ceftriaxone, will transition to PO on discharge (3) Acute metabolic encephalopathy: Mostly due to acute illness Treating underlying illness. Keep good day/night cycles and reorient as needed. Avoid chemical restraint unless very last resort. (4) Chronic atrial fibrillation: Continue diltiazem and Xarelto. Continue monitor (5) Dementia: ADR to Nameda and donepezil in the past. Cont vit D supplementation and frequent reorientation. (6) Hypothyroidism: Cont Synthroid per home regimen. (7) Nephrolithiasis: CT abd pelvis showed 4 mm calcification medial to the right kidney. No hydronephrosis or hydroureter. Urology on board recommended conservative management with abx. If worsening or become febrile or painful, might consider for stent placement CT - urogram ordered by urology check for calcification vs. stone Will make NPO after midnight in case CT showed a stone for stent removal (8) Depression: Cont Celexa per home regimen. (9) DVT prophylaxis: Xarelto/SCDs CODE STATUS DNR Admission and Anticipated Discharge Date Admission Date: June 14, 2020 Subjective Pt was seen and examined Lying in bed with no distress with son at bedside feeding her Pt looks more awake today Denies any pain Physical Exam Physical Exam: General- No acute distress Head- atraumatic Eyes- PERRL, EOMI, ENT- oropharynx clear Neck- supple, no JVD Lungs- clear to auscultation Heart- irregular rhythm; no murmur Abdomen- normal bowel sounds, soft, nontender Extremities- no calf tenderness Neuro- awake, confused Skin- warm & dry Results & Data Results & Data ([facility]) Vital Signs (Past 12 Hours) Vital Signs Temp Pulse Pulse Resp BP Pulse Ox 06/16/20 16:16 36.7 C 103 H 19 139/84 94 06/16/20 11:14 36.4 C L 86 18 102/68 93 06/16/20 07:36 101 H 06/16/20 07:16 36.7 C 100 H 18 115/77 90 06/16/20 06:00 101 H
[2020-06-16] MEDS ORDERED: IOVERSOL 100ml IV ONE (18:21)
--- NOTE | 2020-06-16 19:05 | CT Scan Report ---
CT abdomen pelvis wo/w con HISTORY: 84 years-old Female urogram to see if stone is in ureter, COMBO PER JRB follow-up study in a patient with possible distal right ureteral calculus. COMPARISON: CT abdomen and pelvis 06/14/2020 TECHNIQUE: Multiple axial CT images of the abdomen and pelvis were obtained both with and without the use of 94 Optiray 320 utilizing hematuria protocol with delayed postcontrast imaging. A dose lowerin g technique was used consistent with the principals of RANDOLPH. FINDINGS: Motion degraded exam. Trace pleural effusions with bibasilar atelectasis. Moderate cardiomegaly with coronary artery calcifications. Mild subsegmental bibasilar ectasis. There is no pneumatosis or pneum operitoneum. The spleen, pancreas, adrenal glands, and liver appear unremarkable. 7 mm hypodensity of the left hep atic lobe suggests probable cyst. Contracted gallbladder. Probable cyst of the superior pole right ki dney, 2.5 cm. 5 mm hypodensity of the inferior pole left kidney suggest probable cyst. Limited evalua tion of the kidneys and ureters secondary to motion artifact. There is a 4 mm calcification medial to the right kidney redemonstrated is vascular in origin. There is mild symmetric dilation of the bilat eral renal pelves and ureters. 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 The delayed images demonstrate contrast pooling within the domenic ecting systems and renal pelves. No definite filling defects identified. Additional delayed set of im ages was obtained through the pelvis, again demonstrating nonopacification of the distal ureters. Mod erate urinary bladder distention. Hysterectomy. Indeterminate 2.2 x 2.4 cm left adnexal cystic lesion . Calcified plaque of the abdominal aorta with tortuosity. No adenopathy. No bowel obstruction. Colonic diverticulosis without acute diverticulitis. Mild fecal retention. Normal appendix. Unremarkable sof t tissues. Lumbar levoscoliosis. Degenerative changes of the spine, pelvis and hips. IMPRESSION: 1. Motion degraded exam. 2. The previously described calcification medial to the right kidney is vascular in origin. No urolit h identified. 3. Moderate urinary bladder distention with mild symmetric dilation of the ureters and renal pelves. These findings are likely physiologic secondary to the degree of urinary bladder retention. Recommend voiding. 4. Suboptimal opacification of the ureters likely secondary to decreased renal function. No urothelia l mass lesion identified. 5. Colonic diverticulosis. 6. Trace pleural effusions. 7. Additional findings as above. ACT 112: Negative or not required by law. The above report was generated using voice recognition software. It may contain grammatical, syntax o r spelling errors. Electronically signed by: Obed Hi M.D. 06/16/2020 7:04 PM
[2020-06-16] MEDS ORDERED: dilTIAZem HCL 30 MG TAB PO ONE (19:17)
[2020-06-17] MEDS: LEVOTHYROXINE SODIUM 50 MCG TABLET PO SCH (05:40)
[2020-06-17 07:19] LABS: Hematocrit (blood only) 41.1 % (37-47); Hemoglobin 13.3 g/dL (12.0-16.0); Mean Corpuscular Hemoglobin 29.2 pg (25-34); Mean Corpuscular Hgb Conc 32.4 g/dL (32-36); Mean Corpuscular Volume 90.1 fL (80-100); Mean Platelet Volume 10.3 fL (7.4-10.4); Platelet Count 369 K/uL (130-400); RDW Coefficient of Variation 12.7 % (11.5-14.5); RDW Standard Deviation 41.7 fL (36.4-46.3); Red Blood Count 4.56 M/uL (4.2-5.4); White Blood Count 9.12 K/uL (4.8-10.8)
[2020-06-17 07:35] LABS: BUN Creatinine Ratio 11.8 (10-20); Calcium 9.4 mg/dl (8.5-10.1); Creatinine Clr Calc Pharmacy 35.9 ml/min; Est GFR (African American) 58.2; Est GFR (Non-African American) 50.2; Potassium 3.7 mmol/L (3.5-5.1)
[2020-06-17] MEDS: CALCIUM 600MG + VIT D 400 IU TAB PO SCH ×2 (13:02→20:16)
[2020-06-17] MEDS: CITALOPRAM 20 MG TAB PO SCH (13:02)
[2020-06-17] MEDS: FOLIC ACID 1 MG TAB PO SCH (13:03)
[2020-06-17] MEDS: FENOFIBRATE NANOCRYSTALLIZED 145 MG TABLET PO SCH (13:03)
[2020-06-17] MEDS: dilTIAZem ER 180 MG CAPCR PO SCH (13:03)
[2020-06-17] MEDS: RIVAROXABAN 15 MG TAB PO SCH (15:41)
--- NOTE | 2020-06-17 15:45 | Hospitalist Progress Note ---
Date of Service June 17, 2020 Assessment & Plan (1) Sepsis: (2) Acute pyelonephritis: Meet sepsis criteria on admission with tachycardia, elevated WBC UA positive for nitrite, Leukocytes and bacteria CT abd/pelvis showed renal collecting system on the right with an equivocal calculus of the superior pole moiety ureterovesicular junction, difficult to evaluate secondary to aforementioned limitations. WBC 14K on admission, now normalized at 9K Urine cx grew Ecoli Continue IVF ceftriaxone, will transition to PO Keflex to complete the course of the antibiotic (3) Acute metabolic encephalopathy: Mostly due to acute illness Treating underlying illness. Keep good day/night cycles and reorient as needed. Avoid chemical restraint unless very last resort. (4) Chronic atrial fibrillation: Continue diltiazem and Xarelto. Continue monitor (5) Dementia: ADR to Nameda and donepezil in the past. Cont vit D supplementation and frequent reorientation. (6) Hypothyroidism: Cont Synthroid per home regimen. (7) Nephrolithiasis: CT abd pelvis showed 4 mm calcification medial to the right kidney. No hydronephrosis or hydroureter. Urology on board recommended conservative management with abx. If worsening or become febrile or painful, might consider for stent placement CT - urogram showed Suboptimal opacification of the ureters likely secondary to decreased renal function. No urothelial mass lesion identified. No calculus noted No indication for stent Case discussed with urology Dr. Acevedo that recommended to keep the raygoza cath until seeing urology in the office (8) Depression: Cont Celexa per home regimen. (9) DVT prophylaxis: Xarelto/SCDs CODE STATUS DNR Admission and Anticipated Discharge Date Admission Date: June 14, 2020 Subjective Pt was seen and examined Lying in bed with no distress Pt said that she feels fine Denies any chest pain, palpitation, dizziness and SOB Physical Exam Physical Exam: General- No acute distress Head- atraumatic Eyes- PERRL, EOMI, ENT- oropharynx clear Neck- supple, no JVD Lungs- clear to auscultation Heart- irregular rhythm; no murmur Abdomen- normal bowel sounds, soft, nontender Extremities- no calf tenderness Neuro- awake, confused Skin- warm & dry Results & Data Results & Data ([facility]) Vital Signs (Past 12 Hours) Vital Signs Temp Pulse Pulse Resp BP Pulse Ox 06/17/20 15:34 36.9 C 103 H 18 124/74 93 06/17/20 11:58 36.7 C 94 H 20 145/93 H 97 06/17/20 08:42 37 C 98 H 20 107/69 91 06/17/20 07:25 86 06/17/20 03:45 36.5 C 77 17 133/85 96
[2020-06-17] MEDS: cefTRIAXone SODIUM 1,000 MG in DEXTROSE 5% 50 ML IV SCH (17:09)
[2020-06-18] MEDS: LEVOTHYROXINE SODIUM 50 MCG TABLET PO SCH (06:40)
[2020-06-18] MEDS: CALCIUM 600MG + VIT D 400 IU TAB PO SCH (08:13)
[2020-06-18] MEDS: FOLIC ACID 1 MG TAB PO SCH (08:14)
[2020-06-18] MEDS: dilTIAZem ER 180 MG CAPCR PO SCH (08:15)
[2020-06-18] MEDS: CITALOPRAM 20 MG TAB PO SCH (08:15)
[2020-06-18] MEDS: FENOFIBRATE NANOCRYSTALLIZED 145 MG TABLET PO SCH (08:16)
--- NOTE | 2020-06-18 09:58 | Urology Progress Note ---
Date of Service June 18, 2020 Assessment & Plan (1) Acute pyelonephritis: Clinically improved No labs yet today, but her white count had improved yesterday Discussed continued observation with the patient and her daughterthey are both very much in agreement with this Continue antibiotics and IV fluids, call if further issues, I think expectant management would be reasonable for the future Admission and Anticipated Discharge Date Admission Date: June 14, 2020 Subjective Visit with the patient and her daughter today Subjectively seems to be improved Her daughter reports that she is much less combative and better behaved She denies any pain or discomfort Afebrile now for 24+ hours Physical Exam Constitutional: well developed and well nourished Respiratory: no respiratory distress Cardiovascular: Extremities: no pedal edema Gastrointestinal (Abdomen): Inspection/Auscultation: abdomen normal to inspection Results & Data ([facility]) Vital Signs (Past 12 Hours) Vital Signs Temp Pulse Resp BP Pulse Ox 06/18/20 07:34 36.4 C L 98 H 16 143/92 H 95 06/18/20 04:40 36.7 C 92 H 18 123/86 95 06/17/20 23:47 37.1 C 84 20 118/78 93 PG Care Time/CCT Total # of Minutes Spent Total Time Spent with Patient: Total time spent is greater than 50% in coordination of care (as documented) at patient's floor/unit and/or counseling patient: Coding Level of Care Code 18048 Subseq Hosp Care Lvl 2 Diagnoses Acute pyelonephritis N10
--- NOTE | 2020-06-18 16:01 | Hospitalist Progress Note ---
Date of Service June 18, 2020 Assessment & Plan (1) Sepsis: (2) Acute pyelonephritis: Meet sepsis criteria on admission with tachycardia, elevated WBC UA positive for nitrite, Leukocytes and bacteria CT abd/pelvis showed renal collecting system on the right with an equivocal calculus of the superior pole moiety ureterovesicular junction, difficult to evaluate secondary to aforementioned limitations. WBC 14K on admission, now normalized at 9K Urine cx grew Ecoli Continue IVF ceftriaxone, will transition to PO Keflex to complete 14 days course of antibiotic (3) Acute metabolic encephalopathy: Mostly due to acute illness Treating underlying illness. Keep good day/night cycles and reorient as needed. Avoid chemical restraint unless very last resort. Stable (4) Chronic atrial fibrillation: Diltiazem increased to 180mg Continue Xarelto. Continue monitor (5) Dementia: ADR to Nameda and donepezil in the past. Cont vit D supplementation and frequent reorientation. Stable (6) Hypothyroidism: Cont Synthroid per home regimen. (7) Nephrolithiasis: CT abd pelvis showed 4 mm calcification medial to the right kidney. No hydronephrosis or hydroureter. Urology on board recommended conservative management with abx. If worsening or become febrile or painful, might consider for stent placement CT - urogram showed Suboptimal opacification of the ureters likely secondary to decreased renal function. No urothelial mass lesion identified. No calculus noted No indication for stent Case discussed with urology Dr. Acevedo that recommended to keep the raygoza cath until seeing urology in the office Follow up with urology in 1 week (8) Depression: Cont Celexa per home regimen. (9) DVT prophylaxis: Xarelto/SCDs CODE STATUS DNR Admission and Anticipated Discharge Date Admission Date: June 14, 2020 Subjective Pt was seen and examined Lying in bed with no distress Looks comfortable in bed Denies any chest pain, palpitation, dizziness and SOB Physical Exam Physical Exam: General- No acute distress Head- atraumatic Eyes- PERRL, EOMI, ENT- oropharynx clear Neck- supple, no JVD Lungs- clear to auscultation Heart- irregular rhythm; no murmur Abdomen- normal bowel sounds, soft, nontender Extremities- no calf tenderness Neuro- awake, confused Skin- warm & dry Results & Data Results & Data ([facility]) Vital Signs (Past 12 Hours) Vital Signs Temp Pulse Pulse Resp BP Pulse Ox 06/18/20 15:47 36.4 C L 74 22 96/69 L 92 06/18/20 15:46 36.7 C 83 18 143/78 H 93 06/18/20 15:28 88 06/18/20 11:41 36.7 C 83 18 143/78 H 93 06/18/20 07:34 36.4 C L 98 H 16 143/92 H 95 06/18/20 04:40 36.7 C 92 H 18 123/86 95
[2020-06-18] MEDS ORDERED: cephALEXin 500 MG CAP PO SCH (16:30)
--- NOTE | 2020-06-20 01:37 | Discharge Summary ---
Date of Service June 18, 2020 Admission HPI Per Admitting Provider 84 yo F with dementia who presents per daughter's request to staff at [facility] for evaluation of progressive confusion and weakness of last few days. Daughter waves to her through the window each day and noticed these changes. For instance, the patient is a hearty eater and daughter noticed that her food tray was sitting across the room. The patient did not get up to obtain her tray. However, when staff came in and repositioned the food near her, she was eager to get up and ate heartily. Urine was foul-smelling and she was communicating flank pain. She is disoriented at baseline, however, daughter feels she is more confused than normal. Also daughter reported significant elevation in her pulse earlier, the patient was reportedly febrile prior to arrival. She has an elevation in WBC and a clear urinary infection with CVA tenderness bilaterally. She received 500cc saline and ceftriaxone 1gm IV. Lactate was normal. Daughter was at bedside and plan for admission was explained; she verbalized unde rstanding. Admission Exam Per Admitting Provider CONSTITUTIONAL: WNWD, vitals as above, generally well-appearing EYES: pupils are round and equal bilaterally, normal conjunctivae, no scleral icterus ENT: oropharynx clear NECK: trachea midline RESPIRATORY: clear to auscultation bilaterally, no crackles, rales or wheezes, normal respiratory effort CARDIOVASCULAR: regular rate and rhythm, S1 and 2 heard without murmurs, gallops or rubs, no JVD, no peripheral edema GASTROINTESTINAL: normal bowel sounds, soft, nontender, nondistended. +CVA tenderness bilaterally MUSCULOSKELETAL: strength 5/5 throughout, head is normocephalic and atraumatic SKIN: warm and dry NEUROLOGIC: patellar DTRs 2+ bilat. No facial palsy, no dysarthria. Touch, pain and proprioception normal. CN 2-12 grossly intact, normal cognition, normal speech, no gross neuro deficits. Altered mental status. PSYCHIATRIC: alert cooperative disoriented. Principal Diagnosis (1) Sepsis: (2) Acute pyelonephritis: (3) Acute metabolic encephalopathy: (4) Chronic atrial fibrillation: (5) Dementia: (6) Hypothyroidism: (7) Nephrolithiasis (8) Depression: Discharge Exam General- No acute distress Head- atraumatic Eyes- PERRL, EOMI, ENT- oropharynx clear Neck- supple, no JVD Lungs- clear to auscultation Heart- irregular rhythm; no murmur Abdomen- normal bowel sounds, soft, nontender Extremities- no calf tenderness Neuro- awake, confused Skin- warm & dry Discharge Data Allergies Allergy/AdvReac Type Severity Reaction Status Date / Time latex Allergy Unknown Unknown Verified 06/14/20 17:44 [id number]-Gll-Tft Reductase Allergy Unknown Unknown Verified 06/14/20 17:44 Inhibitor Consultations 06/14/20 18:02 ED Decision to Admit Stat 06/14/20 22:53 Consult Urology Routine 06/17/20 08:51 Consult Case Management - Discharge Planning Routine Ordered Studies 06/14/20 15:16 CT abd pelvis wo con Stat 06/16/20 14:49 CT abdomen pelvis wo/w con Routine CT abdomen pelvis wo/w con HISTORY: 84 years-old Female urogram to see if stone is in ureter, COMBO PER JRB follow-up study in a patient with possible distal right ureteral calculus. COMPARISON: CT abdomen and pelvis 06/14/2020 TECHNIQUE: Multiple axial CT images of the abdomen and pelvis were obtained both with and without the use of 94 Optiray 320 utilizing hematuria protocol with delayed postcontrast imaging. A dose lowering technique was used consistent with the principals of [place]. FINDINGS: Motion degraded exam. Trace pleural effusions with bibasilar atelectasis. Moderate cardiomegaly with coronary artery calcifications. Mild subsegmental bibasilar ectasis. There is no pneumatosis or pneumoperitoneum. The spleen, pancreas, adrenal glands, and liver appear unremarkable. 7 mm hypodensity of the left hepatic lobe suggests probable cyst. Contracted ga llbladder. Probable cyst of the superior pole right kidney, 2.5 cm. 5 mm hypodensity of the inferior pole left kidney suggest probable cyst. Limited evaluation of the kidneys and ureters secondary to motion artifact. There is a 4 mm calcification medial to the right kidney redemonstrated is vascular in origin. There is mild symmetric dilation of the bilateral renal pelves and ureters. 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 The delayed images demonstrate contrast pooling within the collecting systems and renal pelves. No definite filling defects identified. Additional delayed set of images was obtained through the pelvis, again demonstrating nonopacification of the distal ureters. Moderate urinary bladder distention. Hysterectomy. Indeterminate 2.2 x 2.4 cm left adnexal cystic lesion. Calcified plaque of the abdominal aorta with tortuosity. No adenopathy. No bowel obstruction. Colonic diverticulosis without acute diverticulitis. Mild fecal retention. Normal appendix. Unremarkable soft tissues. Lumbar levoscoliosis. Degenerative changes of the spine, pelvis and hips. IMPRESSION: 1. Motion degraded exam. 2. The previously described calcification medial to the right kidney is vascular in origin. No urolith identified. 3. Moderate urinary bladder distention with mild symmetric dilation of the ureters and renal pelves. These findings are likely physiologic secondary to the degree of urinary bladder retention. Recommend voiding. 4. Suboptimal opacification of the ureters likely secondary to decreased renal function. No urothelial mass lesion identified. 5. Colonic diverticulosis. 6. Trace pleural effusions. 7. Additional findings as above. ACT 112: Negative or not required by law. The above report was generated using voice recognition software. It may contain grammatical, syntax or spelling errors. Electronically signed by: Obed Hi M.D. 06/16/2020 7:04 PM Dictated: 06/16/201850 Transcribed: 06/16/201850 SINGLE VIEW CHEST CLINICAL HISTORY: Generalized weakness. FINDINGS: An AP, portable, upright chest radiograph is obtained. No prior studies are available for comparison at the time of dictation. The examination is degraded by portable technique and patient rotation. The heart is mildly enlarged noting atherosclerotic calcification of the thoracic aorta. The pulm onary vasculature is noncongested. Question trace pleural effusions with left basilar atelectasis. No airspace consolidation is identified typical for pneumonia. No pneumothorax is seen. The skeletal structures are osteopenic. The bony thorax is grossly intact. IMPRESSION: 1. Mild cardiac enlargement with no acute cardiopulmonary abnormality. 2. Question trace pleural effusions. ACT 112: Negative or not required by law. Electronically signed by: Jose Alba M.D. 06/14/2020 3:36 PM Dictated: 06/14/20 1534 Transcribed: 06/14/[address] WITHOUT CONTRAST CT DOSE: 325.92 mGy.cm HISTORY: Acute right-sided flank pain right flank pain TECHNIQUE: Multiaxial CT images of the abdomen and pelvis were performed without contrast. A dose lowering technique was utilized adhering to the principles of ALARA. COMPARISON STUDY: Chest radiograph 06/14/2020, lumbar spine radiographs 04/23/2020. FINDINGS: Motion degraded exam. Trace pleural effusions. Moderate cardiomegaly with coronary artery calcifications. Mild subsegmental bibasilar ectasis. There is no pneumatosis or pneumoperitoneum. Limited evaluation of the solid abdominal organs without the use of IV contrast. Within the limitations of the study, the spleen, pancreas, adrenal glands, gallbladder and liver appear unremarkable. Probable cyst of the superior pole right kidney, 2.5 cm. Limited evaluation of the kidneys and ureters secondary to motion artifact. There is a 4 mm calcification medial to the right kidney. It is difficult to determine this is outside of the urinary tract or within the right ureterovesicular junction. 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 No appreciable hydronephrosis or hydroureter. Urinary bladder wall thickening with partial distention. Hysterectomy. Indeterminate 2.2 x 2.4 cm left adnexal cystic lesion. Calcified plaque of the abdominal aorta with tortuosity. No adenopathy. No bowel obstruction. Colonic diverticulosis without acute diverticulitis. Mild fecal retention. Normal appendix. Unremarkable soft tissues. Lumbar levoscoliosis. Degenerative changes of the spine, pelvis and hips. IMPRESSION: 1. Limited exam secondary to motion artifact. 2. 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 Correlate with urinalysis findings. There is no significant hydroureter or hydronephrosis. 3. Trace pleural effusions. 4. Cardiomegaly. 5. No bowel obstruction or bowel wall thickening. Normal appendix. 6. Colonic diverticulosis. ACT 112: Negative or not required by law. The above report was generated using voice recognition software. It may contain grammatical, syntax or spelling errors. Electronically signed by: Obed Hi M.D. 06/14/2020 4:56 PM Dictated: 06/14/201649 Transcribed: 06/14/201649 Hospital Course (1) Sepsis: (2) Acute pyelonephritis: Meet sepsis criteria on admission with tachycardia, elevated WBC UA positive for nitrite, Leukocytes and bacteria CT abd/pelvis showed renal collecting system on the right with an equivocal calculus of the superior pole moiety ureterovesicular junction, difficult to evaluate secondary to aforementioned limitations. WBC 14K on admission, now normalized at 9K Urine cx grew Ecoli Continue IVF ceftriaxone, will transition to PO Keflex to complete 14 days course of antibiotic (3) Acute metabolic encephalopathy: Mostly due to acute illness Treating underlying illness. Keep good day/night cycles and reorient as needed. Avoid chemical restraint unless very last resort. Stable (4) Chronic atrial fibrillation: Diltiazem increased to 180mg Continue Xarelto. Continue monitor (5) Dementia: ADR to [place] and donepezil in the past. Cont vit D supplementation and frequent reorientation. Stable (6) Hypothyroidism: Cont Synthroid per home regimen. (7) Nephrolithiasis: CT abd pelvis showed 4 mm calcification medial to the right kidney. No hydronephrosis or hydroureter. Urology on board recommended conservative management with abx. If worsening or become febrile or painful, might consider for stent placement CT - urogram showed Suboptimal opacification of the ureters likely secondary to decreased renal function. No urothelial mass lesion identified. No calculus noted No indication for stent Case discussed with urology Dr. Acevedo that recommended to keep the raygoza cath until seeing urology in the office Follow up with urology in 1 week (8) Depression: Cont Celexa per home regimen. (9) DVT prophylaxis: Xarelto/SCDs CODE STATUS DNR Total Time Total Time Spent Total Time Spent (In Minutes): 35 minutes Total Time Includes: Examination of the Patient, Discharge Planning, Medication Reconciliation, Communication With Other Providers and Other Discharge Plan Discharge Items Patient Disposition: Personal Half-Way Reason For Visit: ACUTE PYELONEPHRITIS CAUSING SEPSIS, Discharge Diagnosis: (1) Sepsis: (2) Acute pyelonephritis: (3) Acute metabolic encephalopathy: (4) Chronic atrial fibrillation: (5) Dementia: (6) Hypothyroidism: (7) Nephrolithiasis (8) Depression: Condition on Discharge: Good Activity: Resume your previous activity Non-emergency contact: Primary Care Provider and Urologist Call non-emergency contact if: your temperature is above 101 [facility] [place] [[place] Care Provider] - Diet: Heart Healthy Addtl Attending Provider Instructions: Follow up with your primary provider at [facility] You are scheduled with [facility] on 06/26/2020 at 10 am. They are located at [address] [place] [address] . Complete the course of the antibiotic with Keflex to complete 14 days course Keep raygoza catheter for now until seeing urology Fall precaution Continue 24 hr care Aspiration precaution Continue monitor your blood pressure Pending Studies at Discharge: No Stand-Alone Forms: [employer] [facility] [employer], Smoking Cessation Skilled Items Patient informed of condition?: Yes DNR: Yes Discharge Level of Care: Other Communicable Disease: No Discharge Prognosis: Stable Lines: None Urinary Catheter: Yes Medications and DC Order Prescriptions: New diltiazem HCl [Tiazac] 180 mg Capsule,Extended Release 24 Hr 180 mg PO QAM 30 Days Qty: 30 RF: 0 phenazopyridine [Pyridium] 100 mg Tablet 100 mg PO TID PRN (Reason: bladder spasms and pain) Qty: 30 RF: 0 cephalexin 500 mg Capsule 500 mg PO Q12H 9 Days Qty: 18 RF: 0 Continued acetaminophen 325 mg Tablet 325 - 650 mg PO Q4H MDD 3 GMS APAP/24 HOURS PRN (Reason: Fever Or Pain) RF: 0 citalopram 10 mg Tablet 5 mg PO QAM RF: 0 tramadol 50 mg Tablet 25 mg PO Q4H PRN (Reason: Pain) RF: 0 levothyroxine 75 mcg Tablet 75 mcg PO QAM RF: 0 folic acid 1 mg Tablet 2 mg PO QAM RF: 0 calcium citrate-vitamin D3 [Calcium Citrate + D] 315-200 mg-unit Tablet 1 tab PO BID RF: 0 fenofibrate nanocrystallized 145 mg Tablet 145 mg PO QAM RF: 0 Xarelto 15 mg Tablet 15 mg PO QAM RF: 0 Discontinued diltiazem HCl 120 mg Tablet Extended Release 24 Hr 120 mg PO QAM RF: 0 Discharge Orders: Discharge Order (Routine); Ordered 06/18/20 Ordered By: Fab Bruner Admission Data Admit Date/Time: 06/14/20 19:00 Attending Provider: Fab Bruner Admit Provider: Radha Ang Primary Care Provider: Nas Bejarano Providers: Radha Ang ; Mila Mehta Other Interventions: Discharge Summary Assessment (RN) Last Done: 06/18/20 15:46
== END 2020-06-18 17:10 | disposition home or self-care (01) | DRG 871 ==
LOC: ED 14:33 → SUATTDRO 19:00 → 2N 19:00

== ENCOUNTER 2020-09-15 14:58 | Inpatient (IN) ==
[2020-09-15] MEDS ORDERED: SODIUM CHLORIDE 0.9% 500 ML IV SCH (15:15)
--- NOTE | 2020-09-15 15:43 | XRay Report ---
XR chest 1V portable HISTORY: 84 years-old Female weakness acute weakness COMPARISON: Chest radiograph 06/14/2020 TECHNIQUE: Portable AP view of the chest FINDINGS: Cardiomediastinal and hilar silhouettes are within normal limits. Calcified plaque of the thoracic ao rta. There is no pneumothorax, pleural effusion, airspace consolidation or overt pulmonary edema. Deg enerative changes of the shoulders and spine. IMPRESSION: No acute process. ACT 112: Negative or not required by law. The above report was generated using voice recognition software. It may contain grammatical, syntax o r spelling errors. Electronically signed by: Obed Hi M.D. 09/15/2020 3:42 PM
--- NOTE | 2020-09-15 15:56 | Emergency Department Note ---
Impression & Plan Acute alteration in mental status, Acute dehydration, Fecal impaction ED Provider Note NAME: RHONDA JEREZ AGE: 84 SEX: F : 1935 ARRIVES VIA: Walk-In INFORMANT: Patient, the patient's daughter ED PROVIDER(S): Stephen Bonner DO CHIEF COMPLAINT: Altered mental status HPI: The patient is an 84-year-old female who presented to the emergency department with her daughter for an evaluation of altered mental status. The patient has a history of UTI. She is had similar symptoms in the past with UTI. She has had problems with sepsis because of urinary tract infection. Because of this she was told if she ever had any symptoms consistent with urinary tract infection her daughter was to bring her directly to the emergency department. She was not evaluated by her her primary care provider. She denies having any fever nausea or vomiting. Her daughter feels that she is complaining of some lower abdominal pain which is similar to when she is had urinary tract infections in the past. There is been no reported falls. She has been compliant with all her medications. According to her daughter she is also had decreased p.o. intake. ROS: See above HPI for pertinent positives & negatives. A total of 10 systems reviewed and were otherwise negative. PAST MEDICAL HISTORY: See Below PAST SURGICAL HISTORY: See Below FAMILY HISTORY: See Below SOCIAL HISTORY: See Below HOME MEDICATIONS: See Below ALLERGIES: See Below VITALS: See Below PHYSICAL EXAMINATION: GENERAL: Patient is awake alert in no acute distress patient is resting comfortably and showing no signs of anxiety EYES: The conjunctivae are clear. The pupils are round and reactive. EARS, NOSE, MOUTH AND THROAT: The nose is without any evidence of any deformity. Mucous members are dry. NECK: The neck is nontender and supple. RESPIRATORY: Normal respiratory effort is noted there is no evidence of wheezing rhonchi or rales CARDIOVASCULAR: Tachycardic and irregular rate was noted to auscultation. No definite murmur was noted.. GASTROINTESTINAL: The abdomen is soft. Abdomen is nontender. MUSCULOSKELETAL/EXTREMITIES: There is no evidence of gross deformity full range of motion is noted in the hips and shoulders. SKIN: There is no obvious evidence of any rash. There are no petechiae, pallor or cyanosis noted. NEUROLOGIC: Patient is awake and alert. She appears to be oriented to person but not place time or situation. She does recognize her daughter. Strength is symmetric but diminished. MEDICAL DECISION MAKING: The patient is an 84-year-old female who presented to the emergency department with her daughter for an evaluation of altered mental status. The patient has a history of UTI in the past. She was not found to have signs of urinary tract infection on urinalysis today. She was found to have significant dehydration with elevated creatinine as well as elevated sodium. She also had an elevated hemoglobin which likely represents hemoconcentration. She was treated with IV fluids in the emergency department. She was also found no signs of significant fecal impaction on CT. I discussed the patient's laboratory and radiographic studies with her and her daughter. I do not feel that the patient's fecal impaction can be dealt with in the emergency department and I feel that discharging her to a personal mcc would not be in her best interest at is time. For this reason I discussed her case with the on-call [facility] hospitalist group. She was treated with IV fluids and on subsequent reevaluation appeared much more comfortable and awake. Triage Nursing notes reviewed. Prior medical records reviewed Vital Signs: reviewed and remarkable for no significant abnormalities Differential diagnosis: Infection, dehydration, metabolic abnormality, hypo/hyperglycemia, electrolyte disturbance, anemia, hypoxia, cardiac sources, intracerebral event, toxicologic, neurologic, as well as other pathologies. ER treatment provided: See below Diagnostics interpreted by me: ECG: EKG was obtained in the emergency department. My interpretation is sinus tachycardia at 110 bpm. PACs were noted. Inferior and low lateral ST depressions were noted. This was compared to a tracing from June 142019. Atrial fibrillation has been replaced by sinus rhythm. Otherwise no specific changes were noted comparing the QRST morphology. Cardiac Monitoring: An order was placed for continuous cardiac monitoring. The monitor shows a rate of 85 bpm with sinus rhythm. Laboratory studies: As stated above and show below. Imaging studies: See below Consultation(s): 1820: I discussed this case with Dr. Stover. Past Med/Surg History Medical History Atrial fibrillation Dementia Depression H/O: rheumatic fever Hypothyroidism Vertigo Surgical History S/P DARRELL (total abdominal hysterectomy) Status post Mohs surgery Family History Sister Colorectal cancer Ovarian cancer Social History Smoking Status: Never smoker Second Hand Exposure: Yes; Hx Alcohol Use: No Hx Substance Use: No Preferred Language: Congolese Communication Ability: Impaired Kettle Chipper Required: No Beliefs That Will Affect Care: None marital status: Unknown Current Living Situation: Personal Care Facility Current Living Situation Comment: at [facility] Other Information That Helps Us Care for You: No Feels Safe at Home: Yes Safety Concerns: Feels Safe At This Time Assistive Devices: Glasses and Walker Allergies Allergies Allergy/AdvReac Type Severity Reaction Status Date / Time latex Allergy Unknown Unknown Verified 09/15/20 18:26 Dfbyzut-Ttq-Nbp Reductase Allergy Unknown Unknown Verified 09/15/20 18:26 Inhibitor Home Meds Home Medications Medication Instructions Recorded Confirmed Xarelto 15 mg PO QAM 06/14/20 09/15/20 calcium citrate-vitamin D3 1 tab PO BID 06/14/20 09/15/20 [Calcium Citrate + D] citalopram 5 mg PO QAM 06/14/20 09/15/20 fenofibrate nanocrystallized 145 mg PO QAM 06/14/20 09/15/20 folic acid 2 mg PO QAM 06/14/20 09/15/20 tramadol 25 mg PO Q4H PRN 06/14/20 09/15/20 diltiazem HCl [Tiazac] 180 mg PO QAM 09/15/20 09/15/20 levothyroxine 50 mcg PO QAM 09/15/20 09/15/20 nitrofurantoin macrocrystal 50 mg PO QAM 09/15/20 09/15/20 Results & Data (ED) Vital Signs Vital Signs - 24 hr 09/15/20 15:01 09/15/20 15:09 09/15/20 15:15 Temperature Temperature Source Pulse Rate 79 109 H 114 H Pulse Rate [Finger] Pulse Rate from SpO2 Sensor 97 H 75 Respiratory Rate 20 20 26 H Blood Pressure 116/85 145/89 H Blood Pressure [Right Arm] Blood Pressure Mean 95 92 Blood Pressure Mean [Right Arm] Pulse Oximetry 90 98 97 Oxygen Delivery Method Room Air Sepsis Recent Fever Within 48 Hours No Sepsis New/Unexplained Change in Mental Status N/A Sepsis Action Taken by Nursing No Action Required 09/15/20 15:30 09/15/20 15:45 09/15/20 16:00 Temperature Temperature Source Pulse Rate 109 H 118 H Pulse Rate [Finger] Pulse Rate from SpO2 Sensor 90 94 H 53 L Respiratory Rate 14 14 20 Blood Pressure Blood Pressure [Right Arm] Blood Pressure Mean Blood Pressure Mean [Right Arm] Pulse Oximetry 99 97 99 Oxygen Delivery Method Sepsis Recent Fever Within 48 Hours Sepsis New/Unexplained Change in Mental Status Sepsis Action Taken by Nursing 09/15/20 16:15 09/15/20 16:30 09/15/20 16:45 Temperature Temperature Source Pulse Rate 104 H 115 H Pulse Rate [Finger] Pulse Rate from SpO2 Sensor 103 H 103 H 57 L Respiratory Rate 22 23 16 Blood Pressure Blood Pressure [Right Arm] Blood Pressure Mean Blood Pressure Mean [Right Arm] Pulse Oximetry 96 100 93 Oxygen Delivery Method Sepsis Recent Fever Within 48 Hours Sepsis New/Unexplained Change in Mental Status Sepsis Action Taken by Nursing 09/15/20 16:50 09/15/20 17:04 09/15/20 18:26 Temperature 36.6 C Temperature Source Rectal Pulse Rate Pulse Rate [Finger] 60 101 H Pulse Rate from SpO2 Sensor Respiratory Rate 24 18 Blood Pressure Blood Pressure [Right Arm] 134/95 156/92 H Blood Pressure Mean Blood Pressure Mean [Right Arm] 108 113 Pulse Oximetry 99 99 96 Oxygen Delivery Method Room Air Room Air Room Air Sepsis Recent Fever Within 48 Hours Sepsis New/Unexplained Change in Mental Status Sepsis Action Taken by Nursing 09/15/20 18:30 09/15/20 18:45 09/15/20 19:00 Temperature Temperature Source Pulse Rate Pulse Rate [Finger] Pulse Rate from SpO2 Sensor 94 H 89 87 Respiratory Rate Blood Pressure Blood Pressure [Right Arm] Blood Pressure Mean Blood Pressure Mean [Right Arm] Pulse Oximetry 99 98 98 Oxygen Delivery Method Room Air Room Air Sepsis Recent Fever Within 48 Hours Sepsis New/Unexplained Change in Mental Status Sepsis Action Taken by Nursing 09/15/20 19:15 09/15/20 19:30 09/15/20 19:45 Temperature Temperature Source Pulse Rate Pulse Rate [Finger] Pulse Rate from SpO2 Sensor 86 92 H 97 H Respiratory Rate Blood Pressure Blood Pressure [Right Arm] Blood Pressure Mean Blood Pressure Mean [Right Arm] Pulse Oximetry 99 99 97 Oxygen Delivery Method Room Air Sepsis Recent Fever Within 48 Hours Sepsis New/Unexplained Change in Mental Status Sepsis Action Taken by Nursing 09/15/20 20:00 09/15/20 20:02 09/15/20 20:15 Temperature Temperature Source Pulse Rate Pulse Rate [Finger] 90 Pulse Rate from SpO2 Sensor 86 99 H Respiratory Rate 18 Blood Pressure Blood Pressure [Right Arm] 152/94 H Blood Pressure Mean Blood Pressure Mean [Right Arm] 113 Pulse Oximetry 96 100 100 Oxygen Delivery Method Room Air Room Air Room Air Sepsis Recent Fever Within 48 Hours Sepsis New/Unexplained Change in Mental Status Sepsis Action Taken by Nursing 09/15/20 20:30 09/15/20 21:00 09/15/20 21:57 Temperature Temperature Source Pulse Rate Pulse Rate [Finger] 91 H Pulse Rate from SpO2 Sensor 94 H 80 Respiratory Rate 18 Blood Pressure Blood Pressure [Right Arm] 108/89 Blood Pressure Mean Blood Pressure Mean [Right Arm] 95 Pulse Oximetry 100 95 95 Oxygen Delivery Method Room Air Room Air Room Air Sepsis Recent Fever Within 48 Hours Sepsis New/Unexplained Change in Mental Status Sepsis Action Taken by Care Home Medications Current Medication List: was personally reviewed by me Laboratory Data Attestation: I reviewed the patient's lab results. Result diagrams: 09/15/20 16:08 09/15/20 20:30 Lab Results 09/15/20 09/15/20 09/15/20 Range/Units 16:08 16:08 16:08 WBC 5.89 (4.8-10.8) K/uL RBC 6.12 H (4.2-5.4) M/uL Hgb 18.2 H (12.0-16.0) g/dL Hct 54.1 H (37-47) % MCV 88.4 (80-100) fL MCH 29.7 (25-34) pg MCHC 33.6 (32-36) g/dL RDW Std Deviation 45.8 (36.4-46.3) fL RDW Coeff of John 14.2 (11.5-14.5) % Plt Count 301 (130-400) K/uL MPV 11.0 H (7.4-10.4) fL Immature Gran % (Auto) 0.2 % Neut % (Auto) 77.3 % Lymph % (Auto) 16.3 % Door % (Auto) 5.9 % Eos % (Auto) 0.0 % Baso % (Auto) 0.3 % Neut # (Auto) 4.55 (1.4-6.5) K/uL Lymph # (Auto) 0.96 L (1.2-3.4) K/uL Door # (Auto) 0.35 (0.11-0.59) K/uL Eos # (Auto) 0.00 (0-0.5) K/uL Baso # (Auto) 0.02 (0-0.2) K/uL Immature Gran # (Auto) 0.01 (0.00-0.02) K/uL PT 13.3 H (9.0-12.0) Seconds INR 1.3 H (0.9-1.1) APTT 31.5 H (21.0-31.0) Seconds PTT Ratio 1.1 Sodium 147 H (136-145) mmol/L Potassium 3.1 L (3.5-5.1) mmol/L Chloride 113 H (98-107) mmol/L Carbon Dioxide 26 (21-32) mmol/L Anion Gap 8.0 (3-11) BUN 18 (7-18) mg/dl Creatinine 1.24 H (0.6-1.2) mg/dl Est Cr Clr Drug Dosing 25.9 ml/min Est GFR ( Amer) 46.5 Est GFR (Non-Af Amer) 40.1 BUN/Creatinine Ratio 14.4 (10-20) Glucose 127 H (70-99) mg/dl Lactate (0.4-2.0) mmol/L Calcium 10.9 H (8.5-10.1) mg/dl Magnesium 2.4 (1.8-2.4) mg/dl Total Bilirubin 0.6 (0.2-1) mg/dl AST 21 (15-37) U/L ALT 22 (12-78) U/L Alkaline Phosphatase 74 (45-117) U/L Troponin I 0.019 (0-0.045) ng/ml Total Protein 9.7 H (6.4-8.2) gm/dl Albumin 4.4 (3.4-5.0) gm/dl Globulin 5.3 H (2.5-4.0) gm/dl Albumin/Globulin Ratio 0.8 L (0.9-2) Procalcitonin (0-0.5) ng/ml TSH 0.112 L (0.300-4.500) uIu/ml Free T4 1.90 H (0.8-1.6) ng/dl Urine Color Urine Appearance (Clear) Urine pH (4.5-7.5) Ur Specific [place] (1.000-1.030) Urine Protein (Negative) Urine Glucose (UA) (Negative) Urine Ketones (Negative) Urine Blood (Negative) Urine Nitrite (Negative) Urine Bilirubin (Negative) Urine Urobilinogen (Negative) Ur Leukocyte Esterase (Negative) Urine WBC (Auto) (0-5) /hpf Urine RBC (Auto) (0-4) /hpf U Hyaline Cast (Auto) (0-5) /lpf U Epithel Cells (Auto) (0-5) /lpf Urine Bacteria (Auto) (Negative) COVID-19 Eval Order SARS-CoV-2, RNA, NAAT (NEGATIVE) 09/15/20 09/15/20 09/15/20 Range/Units 17:01 20:05 20:05 WBC (4.8-10.8) K/uL RBC (4.2-5.4) M/uL Hgb (12.0-16.0) g/dL Hct (37-47) % MCV (80-100) fL MCH (25-34) pg MCHC (32-36) g/dL RDW Std Deviation (36.4-46.3) fL RDW Coeff of John (11.5-14.5) % Plt Count (130-400) K/uL MPV (7.4-10.4) fL Immature Gran % (Auto) % Neut % (Auto) % Lymph % (Auto) % Door % (Auto) % Eos % (Auto) % Baso % (Auto) % Neut # (Auto) (1.4-6.5) K/uL Lymph # (Auto) (1.2-3.4) K/uL Door # (Auto) (0.11-0.59) K/uL Eos # (Auto) (0-0.5) K/uL Baso # (Auto) (0-0.2) K/uL Immature Gran # (Auto) (0.00-0.02) K/uL PT (9.0-12.0) Seconds INR (0.9-1.1) APTT (21.0-31.0) Seconds PTT Ratio Sodium (136-145) mmol/L Potassium (3.5-5.1) mmol/L Chloride (98-107) mmol/L Carbon Dioxide (21-32) mmol/L Anion Gap (3-11) BUN (7-18) mg/dl Creatinine (0.6-1.2) mg/dl Est Cr Clr Drug Dosing ml/min Est GFR ( Amer) Est GFR (Non-Af Amer) BUN/Creatinine Ratio (10-20) Glucose (70-99) mg/dl Lactate (0.4-2.0) mmol/L Calcium (8.5-10.1) mg/dl Magnesium (1.8-2.4) mg/dl Total Bilirubin (0.2-1) mg/dl AST (15-37) U/L ALT (12-78) U/L Alkaline Phosphatase (45-117) U/L Troponin I (0-0.045) ng/ml Total Protein (6.4-8.2) gm/dl Albumin (3.4-5.0) gm/dl Globulin (2.5-4.0) gm/dl Albumin/Globulin Ratio (0.9-2) Procalcitonin (0-0.5) ng/ml TSH (0.300-4.500) uIu/ml Free T4 (0.8-1.6) ng/dl Urine Color Yellow Urine Appearance Clear (Clear) Urine pH 6.0 (4.5-7.5) Ur Specific [place] 1.020 (1.000-1.030) Urine Protein Trace H (Negative) Urine Glucose (UA) Negative (Negative) Urine Ketones Trace H (Negative) Urine Blood Trace H (Negative) Urine Nitrite Negative (Negative) Urine Bilirubin Negative (Negative) Urine Urobilinogen Negative (Negative) Ur Leukocyte Esterase Negative (Negative) Urine WBC (Auto) 1-5 (0-5) /hpf Urine RBC (Auto) 0-4 (0-4) /hpf U Hyaline Cast (Auto) 1-5 (0-5) /lpf U Epithel Cells (Auto) 10-20 H (0-5) /lpf Urine Bacteria (Auto) 2+ H (Negative) COVID-19 Eval [facility] SARS-CoV-2, RNA, NAAT NEGATIVE (NEGATIVE) 09/15/20 09/15/20 09/15/20 Range/Units 20:30 20:30 20:30 WBC (4.8-10.8) K/uL RBC (4.2-5.4) M/uL Hgb (12.0-16.0) g/dL Hct (37-47) % MCV (80-100) fL MCH (25-34) pg MCHC (32-36) g/dL RDW Std Deviation (36.4-46.3) fL RDW Coeff of John (11.5-14.5) % Plt Count (130-400) K/uL MPV (7.4-10.4) fL Immature Gran % (Auto) % Neut % (Auto) % Lymph % (Auto) % Door % (Auto) % Eos % (Auto) % Baso % (Auto) % Neut # (Auto) (1.4-6.5) K/uL Lymph # (Auto) (1.2-3.4) K/uL Door # (Auto) (0.11-0.59) K/uL Eos # (Auto) (0-0.5) K/uL Baso # (Auto) (0-0.2) K/uL Immature Gran # (Auto) (0.00-0.02) K/uL PT (9.0-12.0) Seconds INR (0.9-1.1) APTT (21.0-31.0) Seconds PTT Ratio Sodium 150 H (136-145) mmol/L Potassium 3.3 L (3.5-5.1) mmol/L Chloride 119 H (98-107) mmol/L Carbon Dioxide 28 (21-32) mmol/L Anion Gap 3.0 (3-11) BUN 16 (7-18) mg/dl Creatinine 1.00 (0.6-1.2) mg/dl Est Cr Clr Drug Dosing 32.2 ml/min Est GFR ( Amer) 60.3 Est GFR (Non-Af Amer) 52.1 BUN/Creatinine Ratio 16.5 (10-20) Glucose 120 H (70-99) mg/dl Lactate 2.1 H* (0.4-2.0) mmol/L Calcium 9.4 (8.5-10.1) mg/dl Magnesium (1.8-2.4) mg/dl Total Bilirubin (0.2-1) mg/dl AST (15-37) U/L ALT (12-78) U/L Alkaline Phosphatase (45-117) U/L Troponin I (0-0.045) ng/ml Total Protein (6.4-8.2) gm/dl Albumin (3.4-5.0) gm/dl Globulin (2.5-4.0) gm/dl Albumin/Globulin Ratio (0.9-2) Procalcitonin < 0.05 (0-0.5) ng/ml TSH (0.300-4.500) uIu/ml Free T4 (0.8-1.6) ng/dl Urine Color Urine Appearance (Clear) Urine pH (4.5-7.5) Ur Specific [place] (1.000-1.030) Urine Protein (Negative) Urine Glucose (UA) (Negative) Urine Ketones (Negative) Urine Blood (Negative) Urine Nitrite (Negative) Urine Bilirubin (Negative) Urine Urobilinogen (Negative) Ur Leukocyte Esterase (Negative) Urine WBC (Auto) (0-5) /hpf Urine RBC (Auto) (0-4) /hpf U Hyaline Cast (Auto) (0-5) /lpf U Epithel Cells (Auto) (0-5) /lpf Urine Bacteria (Auto) (Negative) COVID-19 Eval Order SARS-CoV-2, RNA, NAAT (NEGATIVE) Administered Medications Discontinued Medications Sodium Chloride (Nss) 500 mls @ 999 mls/hr IV .Q31M JODEE Stop: 09/15/20 15:45 Last Infusion: 09/15/20 16:41 Dose: 0 mls/hr Documented by: [id number] Admin: 09/15/20 16:10 Dose: 999 mls/hr Documented by: [id number] Sodium Chloride (Nss) 500 mls @ 999 mls/hr IV .Q31M ONE Stop: 09/15/20 17:15 Last Infusion: 09/15/20 18:31 Dose: 0 mls/hr Documented by: [id number] Admin: 09/15/20 18:00 Dose: 999 mls/hr Documented by: [id number] Sodium Chloride (Nss) 500 mls @ 999 mls/hr IV .Q31M ONE Stop: 09/15/20 18:31 Last Infusion: 09/15/20 19:03 Dose: 0 mls/hr Documented by: [id number] Admin: 09/15/20 18:32 Dose: 999 mls/hr Documented by: [id number] Ceftriaxone Sodium (Rocephin) 1,000 mg in 50 mls @ 100 mls/hr IV NOW STA; Protocol Stop: 09/15/20 20:33 Last Infusion: 09/15/20 21:36 Dose: 0 mls/hr Documented by: [id number] Admin: 09/15/20 21:06 Dose: 100 mls/hr Documented by: [id number] Potassium Chloride (K Francois / Wtr) 10 meq in 100 mls @ 100 mls/hr IV Q1H STA Stop: 09/15/20 21:03 Last Admin: 09/15/20 21:52 Dose: 100 mls/hr Documented by: [id number] Imaging Data Radiologist's Impression: Patient: RHONDA JEREZAdmit Date: 09/15/20#: [id number]: [address] [place], [place] [address]t ID:[id number]: [facility] Date: 1935[facility] Zip: [place], [place] [address]Jme: 84Location: EDSex: FRoom/Bed:Att Phy:Diagnosis: URINARY ISSUESPri Phy: [facility] Date: 09/15/20Fam Phy:Interpreting Phy: Omar HiAdmit Phy: Ordering Phy: Stephen Bonner DO cc: ~ CT head/brain wo con CLINICAL HISTORY: 84 years-old Female with altered. Acutely altered mental status TECHNIQUE: Multiple axial CT images of the head were obtained without contrast. A dose lowering technique was utilized adhering to the principles of ALARA. CT DOSE: 1174.54 mGy.cm COMPARISON: None. FINDINGS: No acute intracranial hemorrhage, midline shift, intracranial mass, hydrocephalus, territorial ischemia or abnormal extra-axial collection. Age-related involutional changes with ex vacuo ventriculomegaly. Extensive white matter hypodensities suggest chronic microvascular ischemic disease. Cerebral vascular calcifications. 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 The calvarium is intact. Small right mastoid effusion. Left mastoid air cells and paranasal sinuses are clear. Soft tissues are unremarkable. Prior bilateral displacement. IMPRESSION: No acute intracranial abnormality. ACT 112: Negative or not required by law. The above report was generated using voice recognition software. It may contain grammatical, syntax or spelling errors. Electronically signed by: Obed Hi M.D. 09/15/2020 5:28 PM Dictated: 09/15/201724Transcribed: 09/15/201724 Patient: RHONDA JEREZAdmit Date: 09/15/20MR#: [id number]: [address] [facility]ct ID:[id number][facility]: 1935[facility] Zip[facility] [place], [place] [address]Rtq: 84Location: EDSex: FRoom/Bed:Att Phy:Diagnosis: URINARY ISSUESPri Phy: [facility] Date: 09/15/20Fam Phy:Interpreting Phy: Omar HiAdmit Phy: Ordering Phy: Stephen Bonner DO cc: ~ XR chest 1V portable HISTORY: 84 years-old Female weakness acute weakness COMPARISON: Chest radiograph 06/14/2020 TECHNIQUE: Portable AP view of the chest FINDINGS: Cardiomediastinal and hilar silhouettes are within normal limits. Calcified plaque of the thoracic aorta. There is no pneumothorax, pleural effusion, airspace consolidation or overt pulmonary edema. Degenerative changes of the shoulders and spine. IMPRESSION: No acute process. ACT 112: Negative or not required by law. The above report was generated using voice recognition software. It may contain grammatical, syntax or spelling errors. Electronically signed by: Obed Hi M.D. 09/15/2020 3:42 PM Dictated: 09/15/20 154Transcribed: 09/15/20 154 Patient: RHONDA JEREZAdmit Date: 09/15/20MR#: [id number]: [address] [facility]AMAcct ID:[id number]: [facility] 1935City Zip: [place], [place] [address]Wus: 84Location: EDSex: FRoom/Bed:Att Phy:Diagnosis: URINARY ISSUESPri Phy: [facility] Date: 09/15/20Fam Phy:Interpreting Phy: Omar HiAdmit Phy: Ordering Phy: Stephen Bonner DO cc: ~ ABDOMEN AND PELVIS CT WITHOUT CONTRAST HISTORY: Acute lower abdominal pain with altered status lower apin TECHNIQUE: Multiaxial CT images of the abdomen and pelvis were performed without contrast. A dose lowering technique was utilized adhering to the principles of ALARA. COMPARISON STUDY: CT abdomen and pelvis 06/16/2020 FINDINGS: Limited exam without the use of IV contrast, and patient upper extremity positioning with mild respiratory motion artifact. Heart is mildly enlarged. Extensive coronary artery calcifications. Mild bibasilar atelectasis. Calcific granuloma of the basal left lower lobe. There is no pneumatosis or pne umoperitoneum. Spleen, mildly atrophic pancreas, adrenal glands and gallbladder are unremarkable. The unenhanced liver also appears to be within normal limits. Probable cyst of the superior pole right kidney, 2.3 cm. No renal or ureteral calculi or obstructive uropathy. Partial distention of the urinary bladder with mild wall thickening. Uterus appears surgically absent. 2.1 cm cystic focus of the left adnexum is unchanged. Calcified plaque of the abdominal aorta without aneurysm. No adenopathy. There is no bowel obstruction. Moderate fecal retention of the rectum with mild rectal wall thickening and trace perirectal stranding. Colonic diverticulosis without acute diverticulitis. Normal appendix. Unremarkable soft tissues. Mineralized appearance of the bones. Degenerative changes of the spine, pelvis and hips. Lumbar levoscoliosis. No acute fracture. IMPRESSION: 1. No bowel obstruction or pneumoperitoneum. Normal appendix. 2. Moderate fecal retention of the rectum. Mild associated rectal wall thickening with trace perirectal stranding. Correlate clinically to exclude stercoral proctitis. 3. Colonic diverticulosis without acute diverticulitis. 4. Additional findings as above. ACT 112: Negative or not required by law. The above report was generated using voice recognition software. It may contain grammatical, syntax or spelling errors. Electronically signed by: Obed Hi M.D. 09/15/2020 5:42 PM Dictated: 09/15/201736Transcribed: 09/15/201736 Blood Pressure Blood Pressure Findings: Normal blood pressure Discharge Plan Visit Data Chief Complaint: Urinary Symptoms Stated Complaint: URINARY ISSUES ED Provider: Stephen Bonner Discharge Problem: Acute alteration in mental status, Acute dehydration, Fecal impaction Patient Disposition: Admitted As Inpatient Condition: Good Forms Stand Alone Forms: [facility] [employer] Prescriptions Prescriptions: No Action citalopram 10 mg Tablet 5 mg PO QAM RF: 0 tramadol 50 mg Tablet 25 mg PO Q4H PRN (Reason: Pain) RF: 0 folic acid 1 mg Tablet 2 mg PO QAM RF: 0 calcium citrate-vitamin D3 [Calcium Citrate + D] 315-200 mg-unit Tablet 1 tab PO BID RF: 0 fenofibrate nanocrystallized 145 mg Tablet 145 mg PO QAM RF: 0 Xarelto 15 mg Tablet 15 mg PO QAM RF: 0 nitrofurantoin macrocrystal 50 mg Capsule 50 mg PO QAM RF: 0 diltiazem HCl [Tiazac] 180 mg capsule,extended release 24 hr 180 mg PO QAM RF: 0 levothyroxine 50 mcg Tablet 50 mcg PO QAM RF: 0 Referrals Referrals: Sindi Chiang [Primary Care Provider] -
[2020-09-15 16:25] LABS: Basophils # (auto) 0.02 K/uL (0-0.2); Basophils % (auto) 0.3 %; Hematocrit (blood only) 54.1 % (37-47); Hemoglobin 18.2 g/dL (12.0-16.0); Immature Granulocytes # (auto) 0.01 K/uL (0.00-0.02); Immature Granulocytes % (auto) 0.2 %; Lymphocytes # (auto) 0.96 K/uL (1.2-3.4); Lymphocytes % (auto) 16.3 %; Mean Corpuscular Hemoglobin 29.7 pg (25-34); Mean Corpuscular Hgb Conc 33.6 g/dL (32-36); Mean Corpuscular Volume 88.4 fL (80-100); Monocytes # (auto) 0.35 K/uL (0.11-0.59); Monocytes % (auto) 5.9 %; Neutrophils # (auto) 4.55 K/uL (1.4-6.5); Neutrophils % (auto) 77.3 %; Platelet Count 301 K/uL (130-400); RDW Coefficient of Variation 14.2 % (11.5-14.5); RDW Standard Deviation 45.8 fL (36.4-46.3); Red Blood Count 6.12 M/uL (4.2-5.4); White Blood Count 5.89 K/uL (4.8-10.8)
[2020-09-15 16:40] LABS: INR 1.3 (0.9-1.1); Partial Thromboplastin Ratio 1.1; Partial Thromboplastin Time 31.5 Seconds (21.0-31.0); Prothrombin Time 13.3 Seconds (9.0-12.0)
[2020-09-15 16:43] LABS: Albumin Level 4.4 gm/dl (3.4-5.0); BUN Creatinine Ratio 14.4 (10-20); Calcium 10.9 mg/dl (8.5-10.1); Creatinine Clr Calc Pharmacy 25.9 ml/min; Est GFR (African American) 46.5; Est GFR (Non-African American) 40.1; Magnesium 2.4 mg/dl (1.8-2.4); Potassium 3.1 mmol/L (3.5-5.1)
[2020-09-15] MEDS ORDERED: SODIUM CHLORIDE 0.9% 500 ML IV ONE ×2 (16:45→18:01)
[2020-09-15 16:54] LABS: Albumin Globulin Ratio 0.8 (0.9-2); Bilirubin,Total 0.6 mg/dl (0.2-1); Globulin 5.3 gm/dl (2.5-4.0); Thyroid Stimulating Hormone 0.112 uIu/ml (0.300-4.500); Total Protein 9.7 gm/dl (6.4-8.2); Troponin I 0.019 ng/ml (0-0.045)
[2020-09-15 17:09] LABS: T4 Free Thyroxine 1.9 ng/dl (0.8-1.6)
[2020-09-15 17:15] LABS: Appearance Urine Clear (Clear); Bacteria Urine Automated 2+ (Negative); Bilirubin Urine Negative (Negative); Blood Urine Trace (Negative); Color Urine Yellow; Glucose Urine UA Negative (Negative); Ketones Urine Trace (Negative); Leukocyte Esterase Urine Negative (Negative); Nitrite Urine Negative (Negative); Protein Urine Trace (Negative); RBC Urine Automated 0-4 /hpf (0-4); Urobilinogen Urine Negative (Negative)
--- NOTE | 2020-09-15 17:29 | CT Scan Report ---
CT head/brain wo con CLINICAL HISTORY: 84 years-old Female with altered. Acutely altered mental status TECHNIQUE: Multiple axial CT images of the head were obtained without contrast. A dose lowering tech nique was utilized adhering to the principles of ALARA. CT DOSE: 1174.54 mGy.cm COMPARISON: None. FINDINGS: No acute intracranial hemorrhage, midline shift, intracranial mass, hydrocephalus, territorial ischem ia or abnormal extra-axial collection. Age-related involutional changes with ex vacuo ventriculomegal y. Extensive white matter hypodensities suggest chronic microvascular ischemic disease. Cerebral vasc ular calcifications. 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 The calvarium is intact. Small right mastoid effusion. Left mastoid air cells and paranasal sinuses are clear. Soft tissues are unremarkable. Prior bilateral displacement. IMPRESSION: No acute intracranial abnormality. ACT 112: Negative or not required by law. The above report was generated using voice recognition software. It may contain grammatical, syntax o r spelling errors. Electronically signed by: Obed Hi M.D. 09/15/2020 5:28 PM
--- NOTE | 2020-09-15 17:44 | CT Scan Report ---
ABDOMEN AND PELVIS CT WITHOUT CONTRAST HISTORY: Acute lower abdominal pain with altered status lower apin TECHNIQUE: Multiaxial CT images of the abdomen and pelvis were performed without contrast. A dose lo wering technique was utilized adhering to the principles of ALARA. COMPARISON STUDY: CT abdomen and pelvis 06/16/2020 FINDINGS: Limited exam without the use of IV contrast, and patient upper extremity positioning with m ild respiratory motion artifact. Heart is mildly enlarged. Extensive coronary artery calcifications. Mild bibasilar atelectasis. Calcific granuloma of the basal left lower lobe. There is no pneumatosis or pneumoperitoneum. Spleen, mildly atrophic pancreas, adrenal glands and gallbladder are unremarkabl e. The unenhanced liver also appears to be within normal limits. Probable cyst of the superior pole right kidney, 2.3 cm. No renal or ureteral calculi or obstructive uropathy. Partial distention of the urinary bladder with mild wall thickening. Uterus appears surgica lly absent. 2.1 cm cystic focus of the left adnexum is unchanged. Calcified plaque of the abdominal a rakan without aneurysm. No adenopathy. There is no bowel obstruction. Moderate fecal retention of the rectum with mild rectal wall thickenin g and trace perirectal stranding. Colonic diverticulosis without acute diverticulitis. Normal appendi x. Unremarkable soft tissues. Mineralized appearance of the bones. Degenerative changes of the spine, pelvis and hips. Lumbar levoscoliosis. No acute fracture. IMPRESSION: 1. No bowel obstruction or pneumoperitoneum. Normal appendix. 2. Moderate fecal retention of the rectum. Mild associated rectal wall thickening with trace perirect al stranding. Correlate clinically to exclude stercoral proctitis. 3. Colonic diverticulosis without acute diverticulitis. 4. Additional findings as above. ACT 112: Negative or not required by law. The above report was generated using voice recognition software. It may contain grammatical, syntax o r spelling errors. Electronically signed by: Obed Hi M.D. 09/15/2020 5:42 PM
--- NOTE | 2020-09-15 18:20 | History & Physical Report ---
Date of Service September 15, 2020 Assessment & Plan (1) Dementia: -history of dementia as per daughter Madison Hunter ([phone]) -No acute intracranial abnormality on head CT -patient from [facility], will get case management consult -PT/OT evaluations -dysphagia screening, if dysphagia pass screening then can start on full liquid diet and advance as tolerated, formal speech and swallow evaluation -aspiration precautions, HOB qshift, oral hygiene - 1 to 1 observation -CODE STATUS is DNR/DNI as per discussion with patient's daughter Madison (2) Dehydration: Acute metabolic encephalopathy secondary to dehydration -elevated creatinine of 1.24 which is above baseline and elevated serum sodium of 147 in a patient with dementia suggest dehydration as cause of confusion (3) FAINA (acute kidney injury): -IV fluids given in the ED as normal saline -continue IV fluids as D5 1/2 normal saline for hydration and calories and trend the labs Possible urinary tract infection -bacteria in the presentation urine -start empiric ceftriaxone, get blood culture, check procalcitonin, check lactic acid CT abdomen 1. No bowel obstruction or pneumoperitoneum. Normal appendix. 2. Moderate fecal retention of the rectum. Mild associated rectal wall thickening with trace perirectal stranding. Correlate clinically to exclude stercoral proctitis. 3. Colonic diverticulosis without acute diverticulitis. Diverticulosis -send stool culture (4) Hypernatremia: -IV fluids given in the ED -continue IV fluids as D5 1/2 normal saline for hydration and calories and trend the labs (5) Hypokalemia: -serum potassium 3.1. give IV potassium Hypercalcemia -serum calcium 10.9 likely from dehydration, IV fludis as above -check PTH, Vitamin D levels (6) Paroxysmal A-fib: -patient is on diltiazem for rate control, continue the home dose 180 mg d aily -patient is on chronic anticoagulation with Xarelto, continue home dose as 15 mg daily DVT prophylaxis: on Xarelto (7) Hypothyroidism: -TSH is low but free T4 is normal. will hold off home dose levothyroxine for now (8) Depression: -continue home dose citalopram History of Present Illness This is a patient from [facility] with dementia. She was recently discharged from hospitalization in June 2020 for acute pyelonephritis and urinary tract infection. Patient presented to the emergency department with her daughter for an evaluation of altered mental status. Her daughter feels that she is complaining of some lower abdominal pain which is similar to when she is had urinary tract infections in the past and was concerned for more confusion at [facility]. In the ED, patient's main problems as assessed by ED provider was dehydration. Patient was given IV fluids. Patient not able to give history because of her dementia and unclear whether other causes of encephalopathy from dehydration versus any underlying infectious process. Hospitalist notes bacteria in the urine and to start empiric ceftriaxone and infection work up. Patient does not appear to be in severe pain although she needed repositioning by nurse to assess her vital signs. As per daughter Madison there are no other symptoms on review of systems. Her daughter provided past medical history Family History: heart conditions, diabetes mellitus, patient's sister with ovarian cancer that became a colon cancer Past Surgical History: hysterectomy at age 36, no other surgeries Allergies: soreness with statins, but otherwise no other drug or food allergies Primary Care Provider: [facility] Sindi Allergies Allergy/AdvReac Type Severity Reaction Status Date / Time latex Allergy Unknown Unknown Verified 09/15/20 18:26 Yqlicas-Naq-Bhu Reductase Allergy Unknown Unknown Verified 09/15/20 18:26 Inhibitor Home Medications Home Medications Medication Instructions Recorded Confirmed Type Xarelto 15 mg PO QAM 06/14/20 09/15/20 History calcium citrate-vitamin D3 1 tab PO BID 06/14/20 09/15/20 History [Calcium Citrate + D] citalopram 5 mg PO QAM 06/14/20 09/15/20 History fenofibrate nanocrystallized 145 mg PO QAM 06/14/20 09/15/20 History folic acid 2 mg PO QAM 06/14/20 09/15/20 History tramadol 25 mg PO Q4H PRN 06/14/20 09/15/20 History diltiazem HCl [Tiazac] 180 mg PO QAM 09/15/20 09/15/20 History levothyroxine 50 mcg PO QAM 09/15/20 09/15/20 History nitrofurantoin macrocrystal 50 mg PO QAM 09/15/20 09/15/20 History Past Med/Surg History Medical History Atrial fibrillation Dementia Depression H/O: rheumatic fever Hypothyroidism Vertigo Surgical History S/P DARRELL (total abdominal hysterectomy) Status post Mohs surgery Family History Sister Colorectal cancer Ovarian cancer Social History Smoking Status: Never smoker Second Hand Exposure: Yes; Hx Alcohol Use: No Hx Substance Use: No Preferred Language: Burkinan Communication Ability: Impaired Rn Case Manager Required: No Beliefs That Will Affect Care: None marital status: Unknown Current Living Situation: Personal Care Facility Current Living Situation Comment: at [facility] Feels Safe at Home: Yes Assistive Devices: Glasses Review of Systems Review of Systems: Unobtainable due to cognitive status Physical Exam Eyes: PERRL, conjunctivae normal, anicteric sclerae ENMT: external ear and nose normal, oropharynx normal Neck: normal visual inspection Respiratory: normal respiratory effort Cardiovascular: Rate/Rhythm: + tachycardic (in low 100 bpm) Gastrointestinal (Abdomen): normal bowel sounds, soft, nontender, no hepatosplenomegaly Musculoskeletal: Head/Neck/Chest: normocephalic and head atraumatic Neurologic: moves all extremities and awake Psychiatric: soft speech, dementia as per her daughter at the bedside, patient cannot give history Results & Data Results & Data ([facility]) Vital Signs (Past 12 Hours) Vital Signs Temp Pulse Pulse Resp BP BP Pulse Ox 09/15/20 17:04 36.6 C 60 24 134/95 99 09/15/20 16:50 99 09/15/20 16:45 115 H 16 93 09/15/20 16:30 104 H 23 100 09/15/20 16:15 22 96 09/15/20 16:00 20 99 09/15/20 15:45 118 H 14 97 09/15/20 15:30 109 H 14 99 09/15/20 15:15 114 H 26 H 97 09/15/20 15:09 109 H 20 145/89 H 98 09/15/20 15:01 79 20 116/85 90
[2020-09-15] MEDS ORDERED: D5W AND 1/2NSS 1,000 ML IV SCH (19:00)
[2020-09-15] MEDS ORDERED: ACETAMINOPHEN 325 MG TAB PO PRN (19:04)
[2020-09-15] MEDS ORDERED: cefTRIAXone SODIUM 1,000 MG/50 ML BAG IV STA (20:04)
[2020-09-15] MEDS ORDERED: POTASSIUM CHLORIDE / WTR 10 MEQ/100 ML PLCT IV STA (20:04)
[2020-09-15 20:57] LABS: BUN Creatinine Ratio 16.5 (10-20); Calcium 9.4 mg/dl (8.5-10.1); Creatinine Clr Calc Pharmacy 32.2 ml/min; Est GFR (African American) 60.3; Est GFR (Non-African American) 52.1; Potassium 3.3 mmol/L (3.5-5.1)
[2020-09-15] MEDS: POTASSIUM CHLORIDE / WTR 10 MEQ/100 ML PLCT IV SCH ×2 (23:11→23:12)
[2020-09-16] MEDS ORDERED: LORazepam 0.25 MG/0.5 ML VIAL IV STA (01:58)
[2020-09-16 06:30] LABS: Basophils # (auto) 0.01 K/uL (0-0.2); Basophils % (auto) 0.2 %; Eosinophils # (auto) 0.01 K/uL (0-0.5); Eosinophils % (auto) 0.2 %; Hematocrit (blood only) 40.7 % (37-47); Hemoglobin 13.3 g/dL (12.0-16.0); Immature Granulocytes # (auto) 0.01 K/uL (0.00-0.02); Immature Granulocytes % (auto) 0.2 %; Lymphocytes # (auto) 0.81 K/uL (1.2-3.4); Lymphocytes % (auto) 16.1 %; Mean Corpuscular Hemoglobin 29.2 pg (25-34); Mean Corpuscular Hgb Conc 32.7 g/dL (32-36); Mean Corpuscular Volume 89.5 fL (80-100); Mean Platelet Volume 10.6 fL (7.4-10.4); Monocytes # (auto) 1.49 K/uL (0.11-0.59); Monocytes % (auto) 29.7 %; Neutrophils # (auto) 2.69 K/uL (1.4-6.5); Neutrophils % (auto) 53.6 %; Platelet Count 224 K/uL (130-400); RDW Coefficient of Variation 14.4 % (11.5-14.5); RDW Standard Deviation 47.2 fL (36.4-46.3); Red Blood Count 4.55 M/uL (4.2-5.4); White Blood Count 5.02 K/uL (4.8-10.8)
[2020-09-16 06:50] LABS: BUN Creatinine Ratio 17.5 (10-20); Calcium 8.7 mg/dl (8.5-10.1); Creatinine Clr Calc Pharmacy 37.8 ml/min; Est GFR (African American) 73.4; Est GFR (Non-African American) 63.4; Potassium 2.9 mmol/L (3.5-5.1)
[2020-09-16 06:54] LABS: Albumin Globulin Ratio 0.9 (0.9-2); Bilirubin,Total 0.4 mg/dl (0.2-1); Globulin 3.4 gm/dl (2.5-4.0); Total Protein 6.4 gm/dl (6.4-8.2)
[2020-09-16] MEDS ORDERED: MULTI-VITAMIN INFUSION 10 ML, THIAMINE HCL 100 MG, FOLIC ACID 1 MG in SODIUM CHLORIDE 0... IV ONE (07:06)
[2020-09-16] MEDS: POTASSIUM CHLORIDE / WTR 10 MEQ/100 ML PLCT IV SCH ×3 (07:46→11:13)
[2020-09-16] MEDS: D5W AND 1/2NSS 1,000 ML IV SCH ×2 (07:46→14:24)
--- NOTE | 2020-09-16 08:05 | Hospitalist Progress Note ---
Date of Service September 16, 2020 Assessment & Plan (1) Dementia: -history of dementia as per daughter Madison Hunter ([phone]) -No acute intracranial abnormality on head CT -patient from [facility], will get case management consult -PT/OT evaluations -dysphagia screening, if dysphagia pass screening then can start on full liquid diet and advance as tolerated, formal speech and swallow evaluation -aspiration precautions, HOB qshift, oral hygiene - 1 to 1 observation -CODE STATUS is DNR/DNI as per discussion with patient's daughter Madison (2) Dehydration: Acute metabolic encephalopathy secondary to dehydration -elevated creatinine of 1.24 which is above baseline and elevated serum sodium of 147 in a patient with dementia suggest dehydration as cause of confusion on presentation -banana bag for 09/16/2020, daily thiamine, daily folic acid -patient to get medical payment poster assessment (3) FAINA (acute kidney injury): -IV fluids given in the ED as normal saline -continue IV fluids as D5 1/2 normal saline for hydration and calories and trend the labs Possible urinary tract infection -bacteria in the presentation urine -started empiric ceftriaxone and continue, urine culture pin point growth and re-incubating -follow blood culture, check procalcitonin negative, check lactic acid around 2.1 times 2 labs and to be rechecked with more IV fluids CT abdomen 1. No bowel obstruction or pneumoperitoneum. Normal appendix. 2. Moderate fecal retention of the rectum. Mild associated rectal wall thickening with trace perirectal stranding. Correlate clinically to exclude stercoral proctitis. 3. Colonic diverticulosis without acute diverticulitis. Diverticulosis -send stool culture (4) Hypernatremia: -serum sodium 147 on presentation -IV fluids given in the ED -continue IV fluids as D5 1/2 normal saline for hydration and calories and trend the labs (5) Hypokalemia: -serum potassium 3.1 on presentation, IV potassium given -serum potassium 2.9 on 09/16/2020 and further potassium supplements to be given Hypercalcemia -serum calcium 10.9 on presentationlikely from dehydration -normalized with IV fluids (6) Paroxysmal A-fib: -patient is on diltiazem for rate control, continue the home dose 180 mg daily -patient is on chronic anticoagulation with Xarelto, continue home dose as 15 mg daily DVT prophylaxis: on Xarelto (7) Hypothyroidism: -TSH is low but free T4 is normal. will hold off home dose levothyroxine for now (8) Depression: -continue home dose citalopram Admission and Anticipated Discharge Date Admission Date: September 15, 2020 Subjective Patient on 1 to 1 observation. No acute distress. but nurse and 1 to 1 staff are vigilant about watching patient to prevent her from pulling the IV line. On IV fluids. NO acute distress. breathing on room air. patient mumbles some speech similar to ED presentation. she says no when asked whether she is feeling pain. Patient cannot answer other questions on review of systems. Review of Systems Review of Systems: Unobtainable due to cognitive status Physical Exam Constitutional: + thin Eyes: EOM intact bilaterally ENMT: external ear and nose normal, oropharynx normal Neck: normal visual inspection Respiratory: normal respiratory effort Cardiovascular: Rate/Rhythm: regular rate Gastrointestinal (Abdomen): normal bowel sounds, soft, nontender, no hepatosplenomegaly Musculoskeletal: Head/Neck/Chest: normocephalic and head atraumatic Neurologic: moves all extremities and awake Psychiatric: Eye Contact: + fair eye contact Results & Data Results & [facility] ([facility]) Vital Signs (Past 12 Hours) Vital Signs Temp Pulse Resp BP BP Pulse Ox 09/16/20 07:13 36.6 C 82 16 130/78 99 09/15/20 23:05 36.8 C 97 H 18 128/66 96 09/15/20 23:01 36.9 C 97 H 16 128/66 96 09/15/20 21:57 91 H 18 108/89 95 09/15/20 21:00 95 09/15/20 20:30 100 09/15/20 20:15 100 09/15/20 20:02 90 18 152/94 H 100
[2020-09-16] MEDS: FOLIC ACID 1 MG in SYRINGE 9.8 ML IV SCH (08:16)
[2020-09-16] MEDS: CALCIUM 600MG + VIT D 400 IU TAB PO SCH ×2 (08:16→20:09)
[2020-09-16] MEDS: dilTIAZem ER 180 MG CAPCR PO SCH (08:16)
[2020-09-16] MEDS: THIAMINE HCL 100 MG in SYRINGE 9 ML IV SCH (08:16)
[2020-09-16] MEDS ORDERED: FOLIC ACID 1 MG TAB PO SCH (09:00)
[2020-09-16 12:41] LABS: BUN Creatinine Ratio 13.3 (10-20); Calcium 8.5 mg/dl (8.5-10.1); Est GFR (African American) 71.4; Est GFR (Non-African American) 61.6; Potassium 3.3 mmol/L (3.5-5.1)
[2020-09-16] MEDS ORDERED: POTASSIUM PHOS 3 MMOL/1 ML INFUSION IV STA (13:10)
--- NOTE | 2020-09-16 13:20 | Electrocardiogram Report ---
Test Reason : Blood Pressure : / mmHG Vent. Rate : 110 BPM Atrial Rate : 110 BPM P-R Int : 192 ms QRS Dur : 070 ms QT Int : 354 ms P-R-T Axes : 034 003 079 degrees QTc Int : 479 ms Sinus tachycardia with Premature atrial complexes Low voltage QRS Nonspecific ST and T wave abnormality Abnormal ECG When compared with ECG of 14-JUN-2020 15:25, Sinus rhythm has replaced Atrial fibrillation Nonspecific T wave abnormality no longer evident in Inferior leads Nonspecific T wave abnormality, improved in Anterolateral leads Confirmed by Stephen Herrera ([id number]) on 09/16/2020 1:20:32 PM Referred By: Sindi Nieto Ceres Confirmed By:Stephen Herrera
[2020-09-16] MEDS ORDERED: POTASSIUM PHOSPHATE 24 MMOL in SODIUM CHLORIDE 0.9% 500 ML IV ONE (13:30)
[2020-09-16] MEDS: RIVAROXABAN 15 MG TAB PO SCH (17:20)
[2020-09-16 19:17] LABS: Albumin Level 2.9 gm/dl (3.4-5.0); BUN Creatinine Ratio 9.7 (10-20); Calcium 8.6 mg/dl (8.5-10.1); Creatinine Clr Calc Pharmacy 32.8 ml/min; Est GFR (African American) 61.8; Est GFR (Non-African American) 53.3; Magnesium 1.7 mg/dl (1.8-2.4); Potassium 3.7 mmol/L (3.5-5.1)
[2020-09-16 19:19] LABS: Albumin Globulin Ratio 0.9 (0.9-2); Bilirubin,Total 0.3 mg/dl (0.2-1); Globulin 3.2 gm/dl (2.5-4.0); Total Protein 6.1 gm/dl (6.4-8.2)
[2020-09-16] MEDS: cefTRIAXone SODIUM 1,000 MG in DEXTROSE 5% 50 ML IV SCH (20:08)
[2020-09-17] MEDS ORDERED: MAGNESIUM SULFATE / D5W 1 GM/100 ML BAG IV ONE (03:04)
[2020-09-17 05:37] LABS: Basophils # (auto) 0.02 K/uL (0-0.2); Basophils % (auto) 0.5 %; Eosinophils # (auto) 0.06 K/uL (0-0.5); Eosinophils % (auto) 1.5 %; Hematocrit (blood only) 38.2 % (37-47); Hemoglobin 12.3 g/dL (12.0-16.0); Immature Granulocytes # (auto) 0.01 K/uL (0.00-0.02); Immature Granulocytes % (auto) 0.3 %; Lymphocytes % (auto) 28.4 %; Mean Corpuscular Hgb Conc 32.2 g/dL (32-36); Mean Corpuscular Volume 90.1 fL (80-100); Mean Platelet Volume 10.4 fL (7.4-10.4); Monocytes % (auto) 20.6 %; Neutrophils # (auto) 1.89 K/uL (1.4-6.5); Neutrophils % (auto) 48.7 %; Platelet Count 193 K/uL (130-400); RDW Coefficient of Variation 14.5 % (11.5-14.5); RDW Standard Deviation 47.5 fL (36.4-46.3); Red Blood Count 4.24 M/uL (4.2-5.4); White Blood Count 3.88 K/uL (4.8-10.8)
[2020-09-17 06:01] LABS: Albumin Level 2.8 gm/dl (3.4-5.0); BUN Creatinine Ratio 12.3 (10-20); Calcium 8.4 mg/dl (8.5-10.1); Creatinine Clr Calc Pharmacy 43.5 ml/min; Est GFR (African American) 86.8; Est GFR (Non-African American) 74.9; Magnesium 2.2 mg/dl (1.8-2.4); Potassium 2.8 mmol/L (3.5-5.1)
[2020-09-17 06:06] LABS: Albumin Globulin Ratio 0.9 (0.9-2); Bilirubin,Total 0.2 mg/dl (0.2-1); Globulin 3.1 gm/dl (2.5-4.0); Phosphorus 2.7 mg/dl (2.5-4.9); Total Protein 5.9 gm/dl (6.4-8.2)
[2020-09-17] MEDS ORDERED: POTASSIUM CHLORIDE 20 MEQ/15 ML UDC PO ONE (07:30)
[2020-09-17] MEDS: POTASSIUM CHLORIDE / WTR 10 MEQ/100 ML PLCT IV SCH ×3 (08:03→10:26)
[2020-09-17] MEDS: FOLIC ACID 1 MG in SYRINGE 9.8 ML IV SCH (08:06)
[2020-09-17] MEDS: dilTIAZem ER 180 MG CAPCR PO SCH (08:07)
[2020-09-17] MEDS: THIAMINE HCL 100 MG in SYRINGE 9 ML IV SCH (08:07)
[2020-09-17] MEDS: CALCIUM 600MG + VIT D 400 IU TAB PO SCH ×2 (08:07→20:29)
--- NOTE | 2020-09-17 09:21 | Hospitalist Progress Note ---
Date of Service September 17, 2020 Assessment & Plan (1) Dementia: -history of dementia as per daughter Madison Hunter ([phone]) -No acute intracranial abnormality on head CT -patient from [facility], will get case management consult -PT/OT evaluations -patient was assessed by speech and swallow therapist on 09/16/2020 and her diet has been advanced -aspiration precautions, HOB qshift, oral hygiene - 1 to 1 observation -CODE STATUS is DNR/DNI as per discussion with patient's daughter Madison who also wishes for regular updates (2) Dehydration: Acute metabolic encephalopathy secondary to dehydration -presentation elevated creatinine of 1.24 which is above baseline and elevated serum sodium of 147 in a patient with dementia suggest dehydration as cause of confusion -banana bag for 09/16/2020, daily thiamine, daily folic acid forestry aide assessment (3) FAINA (acute kidney injury): with Multiple Electrolyte Abnormalities (listed in problem list below) -IV fluids given in the ED as normal saline -IV fluids as D5 1/2 normal saline for hydration and calories were continued to night time of 09/16/2020 -acute kidney injury resolved Possible urinary tract infection -bacteria in the presentation urine -patient was started empiric ceftriaxone on 09/15/2020 and continued, urine culture pin point growth and re-incubating -blood culture no growth to date so far, check procalcitonin negative, check lactic acid around 2.1 times 2 labs, normalized lactic levels on 09/16/2020 -continue ceftriaxone daily for now CT abdomen 1. No bowel obstruction or pneumoperitoneum. Normal appendix. 2. Moderate fecal retention of the rectum. Mild associated rectal wall thickening with trace perirectal stranding. Correlate clinically to exclude stercoral proctitis. 3. Colonic diverticulosis without acute diverticulitis. Diverticulosis -send stool culture when possible -monitor for bowel movements. give daily senna , colace, prn Miralax (4) Hypernatremia: -serum sodium 147 on presentation -IV fluids given in the ED -IV fluids as D5 1/2 normal saline have been stopped as serum sodium declined from as high as 150 to 145 -monitor serum sodium off IV fluids for now (5) Hypokalemia: -serum potassium 3.1 on presentation, IV potassium given -serum potassium 2.9 on 09/16/2020 and further potassium supplements to be given -serum potassium 2.9 on 09/17/2020, further potassium supplements ordered Hypomagnesemia, Hypophosphatemia -as of 09/17/2020 the labs are repleted but since her original supplements were IV mag and IV phosp, these numbers may decline by 09/18/2020 labs Hypercalcemia -serum calcium 10.9 on presentation from dehydration, normalized with IV fluids (6) Paroxysmal A-fib: -patient is on diltiazem for rate control, continue the home dose 180 mg daily -patient is on chronic anticoagulation with Xarelto, continue home dose as 15 mg daily DVT prophylaxis: on Xarelto (7) Hypothyroidism: -TSH is low but free T4 is normal. will hold off home dose levothyroxine for now (8) Depression: -continue home dose citalopram Admission and Anticipated Discharge Date Admission Date: September 16, 2020 Subjective Patient seen at bedside. She is awake and soft spoken. With her underlying dementia, it is difficult to know what is her mental baseline but she is more alert on today's exam compared to previous days. Patient is only oriented to herself and does not know time or place. She was reminded that she has been in hospital for the last 2 days. Because of dementia, it is not possible to complete full review of systems. But patient remain on room air and does not appear to have shortness of breath. Patient does not appear to be having any acute distress of acute pain. Review of Systems Review of Systems: Unobtainable due to cognitive status Physical Exam Constitutional: + thin Eyes: PERRL, conjunctivae normal, anicteric sclerae EOM intact bilaterally ENMT: external ear and nose normal, oropharynx normal Neck: normal visual inspection Respiratory: normal respiratory effort Cardiovascular: Rate/Rhythm: regular rate Gastrointestinal (Abdomen): normal bowel sounds, soft, nontender, no hepatosplenomegaly Musculoskeletal: Head/Neck/Chest: normocephalic and head atraumatic Neurologic: moves all extremities and awake Psychiatric: Eye Contact: + fair eye contact Results & Data Results & Data ([facility]) Vital Signs (Past 12 Hours) Vital Signs Temp Pulse Resp BP BP Pulse Ox 09/17/20 07:17 36.3 C L 65 16 116/76 93 09/16/20 23:39 36.6 C 76 19 109/66 98
[2020-09-17] MEDS ORDERED: POLYETHYLENE (MIRALAX) 17 GM PACK PO PRN (09:33)
[2020-09-17] MEDS: DOCUSATE SODIUM/SENNA 50/8.6MG TAB PO SCH (10:29)
[2020-09-17] MEDS: CITALOPRAM 20 MG TAB PO SCH (10:29)
[2020-09-17 13:26] LABS: BUN Creatinine Ratio 13.1 (10-20); Calcium 8.9 mg/dl (8.5-10.1); Creatinine Clr Calc Pharmacy 41.8 ml/min; Est GFR (African American) 82.8; Est GFR (Non-African American) 71.4; Potassium 3.6 mmol/L (3.5-5.1)
[2020-09-17] MEDS: RIVAROXABAN 15 MG TAB PO SCH (17:24)
[2020-09-17] MEDS: cefTRIAXone SODIUM 1,000 MG in DEXTROSE 5% 50 ML IV SCH (20:23)
[2020-09-18] MEDS: CALCIUM 600MG + VIT D 400 IU TAB PO SCH ×2 (08:47→20:16)
[2020-09-18] MEDS: CITALOPRAM 20 MG TAB PO SCH (08:47)
[2020-09-18] MEDS: DOCUSATE SODIUM/SENNA 50/8.6MG TAB PO SCH (08:47)
[2020-09-18] MEDS: dilTIAZem ER 180 MG CAPCR PO SCH (08:50)
[2020-09-18] MEDS: FOLIC ACID 1 MG in SYRINGE 9.8 ML IV SCH (08:51)
[2020-09-18] MEDS: THIAMINE HCL 100 MG in SYRINGE 9 ML IV SCH (08:51)
[2020-09-18 09:03] LABS: BUN Creatinine Ratio 20.6 (10-20); Calcium 8.7 mg/dl (8.5-10.1); Creatinine Clr Calc Pharmacy 43.5 ml/min; Est GFR (African American) 86.8; Est GFR (Non-African American) 74.9; Phosphorus 3.1 mg/dl (2.5-4.9); Potassium 3.1 mmol/L (3.5-5.1)
[2020-09-18] MEDS ORDERED: POTASSIUM CHLORIDE CRTAB 20 MEQ TABCR PO ONE (10:00)
[2020-09-18] MEDS: RIVAROXABAN 15 MG TAB PO SCH (17:41)
--- NOTE | 2020-09-18 19:43 | Hospitalist Progress Note ---
Date of Service September 18, 2020 Assessment & Plan (1) Dementia: Acute metabolic encephalopathy secondary to dehydration vs UTI History of dementia as per daughter Madisno Hunter ([phone]) CT head showed no acute intracranial abnormality Continue PT/OT eval patient was assessed by speech and swallow therapist on 09/16/2020 and her diet has been advanced aspiration precautions, HOB qshift, oral hygiene has been off 1 to 1 observation Stable (2) Dehydration: (3) FAINA (acute kidney injury): Possible related to dehydration due to poor oral intake Creatinine on admission 1.24 Received IVF, creatinine back to baseline Abnormal UA UA positive for bacteria Patient was started empiric ceftriaxone on 09/15/2020 Urine culture pin point growth and re-incubating Will consider to d/c abx if no growth Constipation CT abd pelvis showed moderate fecal retention of the rectum. Mild associated rectal wall thickening with trace perirectal stranding. Colonic diverticulosis without acute diverticulitis. Continue daily senna , colace, prn Miralax (4) Hypernatremia: Serum sodium 147 on presentation, then increased to 150. Na improved to 142 stable (5) Hypokalemia: Hypokalemia K 3.1 today K replaced Continue monitor BMP Hypomagnesemia Hypophosphatemia Electrolytes replaced Hypercalcemia Stable (6) Paroxysmal A-fib: rate control with diltiazem Continue Xarelto Stable DVT prophylaxis: on Xarelto (7) Hypothyroidism: -TSH is low but free T4 is normal. Will resume levothyroxine (8) Depression: -continue home dose citalopram -CODE STATUS is DNR/DNI (previous hospitalist discussed code status with patient's daughter Madison) Admission and Anticipated Discharge Date Admission Date: September 16, 2020 Subjective Pt was seen and examined Lying in bed with no distress resting comfortable Nurse said that she fed herself today No new complaint Physical Exam Physical Exam: General- No acute distress Head- atraumatic Eyes- PERRL ENT- oropharynx clear Neck- supple, no JVD Lungs- poor air entry Heart- regular rhythm; no murmur Abdomen- normal bowel sounds, soft, nontender Extremities- no calf tenderness Neuro- confused/dementia, move extremities Skin- warm & dry Results & Data Results & Data ([facility]) Vital Signs (Past 12 Hours) Vital Signs Temp Pulse Resp BP Pulse Ox 09/18/20 15:14 36.6 C 69 16 114/68 96 09/18/20 07:59 36.6 C 62 18 97/63 L 90
[2020-09-18] MEDS: cefTRIAXone SODIUM 1,000 MG in DEXTROSE 5% 50 ML IV SCH (20:16)
[2020-09-19 09:11] LABS: Hematocrit (blood only) 38.8 % (37-47); Hemoglobin 12.5 g/dL (12.0-16.0); Mean Corpuscular Hemoglobin 28.7 pg (25-34); Mean Corpuscular Hgb Conc 32.2 g/dL (32-36); Mean Platelet Volume 10.5 fL (7.4-10.4); Platelet Count 173 K/uL (130-400); RDW Standard Deviation 45.7 fL (36.4-46.3); Red Blood Count 4.36 M/uL (4.2-5.4); White Blood Count 3.12 K/uL (4.8-10.8)
[2020-09-19 09:36] LABS: BUN Creatinine Ratio 18.8 (10-20); Calcium 8.6 mg/dl (8.5-10.1); Creatinine Clr Calc Pharmacy 45.3 ml/min; Est GFR (African American) 91.3; Est GFR (Non-African American) 78.8; Potassium 3.3 mmol/L (3.5-5.1)
[2020-09-19] MEDS ORDERED: POTASSIUM CHLORIDE 10 MEQ TABCR PO ONE (10:45)
[2020-09-19] MEDS: DOCUSATE SODIUM/SENNA 50/8.6MG TAB PO SCH (10:51)
[2020-09-19] MEDS: dilTIAZem ER 180 MG CAPCR PO SCH (10:51)
[2020-09-19] MEDS: CALCIUM 600MG + VIT D 400 IU TAB PO SCH ×2 (10:51→20:41)
[2020-09-19] MEDS: CITALOPRAM 20 MG TAB PO SCH (10:51)
[2020-09-19] MEDS: FOLIC ACID 1 MG in SYRINGE 9.8 ML IV SCH (10:52)
[2020-09-19] MEDS: THIAMINE HCL 100 MG in SYRINGE 9 ML IV SCH (10:52)
[2020-09-19] MEDS: RIVAROXABAN 15 MG TAB PO SCH (16:46)
--- NOTE | 2020-09-19 20:30 | Hospitalist Progress Note ---
Date of Service September 19, 2020 Assessment & Plan (1) Dementia: Acute metabolic encephalopathy secondary to dehydration vs UTI History of dementia as per daughter Madison Hunter ([phone]) CT head showed no acute intracranial abnormality Continue PT/OT eval patient was assessed by speech and swallow therapist on 09/16/2020 and her diet has been advanced aspiration precautions, HOB qshift, oral hygiene has been off 1 to 1 observation Stable (2) Dehydration: Acute metabolic encephalopathy secondary to dehydration -presentation elevated creatinine of 1.24 which is above baseline and elevated serum sodium of 147 in a patient with dementia suggest dehydration as cause of confusion -banana bag for 09/16/2020, daily thiamine, 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 Mild associated rectal wall thickening with trace perirectal stranding. Colonic diverticulosis without acute diverticulitis. Continue daily senna , colace, prn Miralax (4) Hypernatremia: Serum sodium 147 on presentation, then increased to 150. Na improved to 142 stable (5) Hypokalemia: Hypokalemia K 3.3 today K replaced Continue monitor BMP Hypomagnesemia Hypophosphatemia Electrolytes replaced Hypercalcemia Stable (6) Paroxysmal A-fib: rate control with diltiazem Continue Xarelto Stable DVT prophylaxis: on Xarelto (7) Hypothyroidism: -TSH is low but free T4 is normal. Levothyroxine decreased to 37.5 mg Will need outpatient TSH in 4 to 6 weeks (8) Depression: -continue home dose citalopram -CODE STATUS is DNR/DNI (previous hospitalist discussed code status with patient's daughter Madison) Admission and Anticipated Discharge Date Admission Date: September 16, 2020 Subjective Pt was seen and examined Sitting in chair with no distress spoke with a soft voice and smiling Calm and not able to follow command Look very comfortable sitting Physical Exam Physical Exam: General- No acute distress Head- atraumatic Eyes- PERRL ENT- oropharynx clear Neck- supple, no JVD Lungs- poor air entry Heart- regular rhythm; no murmur Abdomen- normal bowel sounds, soft, nontender Extremities- no calf tenderness Neuro- confused/dementia, move extremities Skin- warm & dry Results & Data Results & Data ([facility]) Vital Signs (Past 12 Hours) Vital Signs Temp Pulse Resp BP Pulse Ox 09/19/20 15:28 36.5 C 61 18 103/67 98
[2020-09-20] MEDS: LEVOTHYROXINE SODIUM 25 MCG TABLET PO SCH (05:36)
[2020-09-20] MEDS: CALCIUM 600MG + VIT D 400 IU TAB PO SCH ×2 (07:56→20:01)
[2020-09-20] MEDS: DOCUSATE SODIUM/SENNA 50/8.6MG TAB PO SCH (07:56)
[2020-09-20] MEDS: CITALOPRAM 20 MG TAB PO SCH (07:56)
[2020-09-20] MEDS: dilTIAZem ER 180 MG CAPCR PO SCH (07:57)
[2020-09-20] MEDS: FOLIC ACID 1 MG in SYRINGE 9.8 ML IV SCH ×2 (07:58→08:04)
[2020-09-20] MEDS: THIAMINE HCL 100 MG in SYRINGE 9 ML IV SCH ×2 (07:58→08:05)
[2020-09-20 10:41] LABS: BUN Creatinine Ratio 15.1 (10-20); Calcium 9.1 mg/dl (8.5-10.1); Creatinine Clr Calc Pharmacy 33.9 ml/min; Est GFR (African American) 64.2; Est GFR (Non-African American) 55.4; Magnesium 2.1 mg/dl (1.8-2.4); Potassium 3.7 mmol/L (3.5-5.1)
[2020-09-20] MEDS: RIVAROXABAN 15 MG TAB PO SCH (15:44)
--- NOTE | 2020-09-20 18:54 | Hospitalist Progress Note ---
Date of Service September 20, 2020 Assessment & Plan (1) Dementia: Acute metabolic encephalopathy secondary to dehydration vs UTI History of dementia as per daughter Madison Hunter ([phone]) CT head showed no acute intracranial abnormality Continue PT/OT eval patient was assessed by speech and swallow therapist on 09/16/2020 and her diet has been advanced aspiration precautions, HOB qshift, oral hygiene has been off 1 to 1 observation Stable (2) Dehydration: Acute metabolic encephalopathy secondary to dehydration -presentation elevated creatinine of 1.24 which is above baseline and elevated serum sodium of 147 in a patient with dementia suggest dehydration as cause of confusion -banana bag for 09/16/2020, daily thiamine, daily folic acid senior copywriter assessment (3) FAINA (acute kidney injury): Possible related to dehydration due to poor oral intake Creatinine on admission 1.24 Received IVF, creatinine back to baseline UTI UA positive for bacteria Patient was started empiric ceftriaxone on 09/15/2020 Urine cx grew enterococcus durans/hirae that is only sensitive to dapto/Vanco IV received Rocephin x4 days, will d/c abx today Pt is afebrile and no leukocytosis Repeat urine cx showed pin-point growth, Will go start on IV abx since able to assess for symptoms due to dementia and daughter said that pt has history of recurrent UTI If repeat urine negative, will d/c IV abx Constipation CT abd pelvis showed moderate fecal retention of the rectum. Mild associated rectal wall thickening with trace perirectal stranding. Colonic diverticulosis without acute diverticulitis. Continue daily senna , colace, prn Miralax (4) Hypernatremia: Serum sodium 147 on presentation, then increased to 150. Na improved to 142 stable (5) Hypokalemia: Hypokalemia K 3.7 today Continue monitor BMP Hypomagnesemia Hypophosphatemia Electrolytes replaced Hypercalcemia Stable (6) Paroxysmal A-fib: rate control with diltiazem Continue Xarelto Stable DVT prophylaxis: on Xarelto (7) Hypothyroidism: -TSH is low but free T4 is normal. Levothyroxine decreased to 37.5 mg Will need outpatient TSH in 4 to 6 weeks (8) Depression: -continue home dose citalopram -CODE STATUS is DNR/DNI (previous hospitalist discussed code status with patient's daughter Madison) Admission and Anticipated Discharge Date Admission Date: September 16, 2020 Subjective Pt was seen and examined Sitting in chair with no distress no abnormal behavior and smiling Nurse said that she tried to feed herself Spoke to daughter Josseline today and provided with update Physical Exam Physical Exam: General- No acute distress Head- atraumatic Eyes- PERRL ENT- oropharynx clear Neck- supple, no JVD Lungs- poor air entry Heart- regular rhythm; no murmur Abdomen- normal bowel sounds, soft, nontender Extremities- no calf tenderness Neuro- confused/dementia, move extremities Skin- warm & dry Results & Data Results & Data ([facility]) Vital Signs (Past 12 Hours) Vital Signs Temp Pulse Resp BP Pulse Ox 09/20/20 15:13 36.6 C 71 16 115/75 97 09/20/20 06:59 36.4 C L 63 16 135/76 95
[2020-09-20] MEDS: DAPTOmycin 200 MG in SYRINGE 0 ML IV SCH (20:00)
[2020-09-21] MEDS: LEVOTHYROXINE SODIUM 25 MCG TABLET PO SCH (05:55)
[2020-09-21] MEDS: CALCIUM 600MG + VIT D 400 IU TAB PO SCH ×2 (09:19→20:09)
[2020-09-21] MEDS: FOLIC ACID 1 MG in SYRINGE 9.8 ML IV SCH (09:19)
[2020-09-21] MEDS: DOCUSATE SODIUM/SENNA 50/8.6MG TAB PO SCH (09:20)
[2020-09-21] MEDS: CITALOPRAM 20 MG TAB PO SCH (09:20)
[2020-09-21] MEDS: dilTIAZem ER 180 MG CAPCR PO SCH (09:21)
[2020-09-21] MEDS: THIAMINE HCL 100 MG in SYRINGE 9 ML IV SCH (09:22)
[2020-09-21] MEDS: RIVAROXABAN 15 MG TAB PO SCH (16:37)
--- NOTE | 2020-09-21 17:04 | Hospitalist Progress Note ---
Date of Service September 21, 2020 Assessment & Plan (1) Dementia: Acute metabolic encephalopathy secondary to dehydration vs UTI History of dementia as per daughter Madison Hunter ([phone]) CT head showed no acute intracranial abnormality Continue PT/OT eval patient was assessed by speech and swallow therapist on 09/16/2020 and her diet has been advanced aspiration precautions, HOB qshift, oral hygiene has been off 1 to 1 observation Stable (2) FAINA (acute kidney injury): Possible related to dehydration due to poor oral intake Creatinine on admission 1.24 Received IVF, creatinine back to baseline UTI UA positive for bacteria Patient was started empiric ceftriaxone on 09/15/2020 Urine cx grew enterococcus durans/hirae that is only sensitive to dapto/Vanco IV received Rocephin x4 days, will d/c abx today Pt is afebrile and no leukocytosis Repeat urine cx grew staph species Starting on IV abx since able to assess for symptoms due to dementia and daughter said that pt has history of recurrent UTI If repeat urine negative, will d/c IV abx Continue IV Dapto abx Constipation CT abd pelvis showed moderate fecal retention of the rectum. Mild associated rectal wall thickening with trace perirectal stranding. Colonic diverticulosis without acute diverticulitis. Continue daily senna , colace, prn Miralax (3) Hypernatremia: Serum sodium 147 on presentation, then increased to 150. Na improved to 142 stable (4) Hypokalemia: Hypokalemia K 3.7 today Continue monitor BMP Hypomagnesemia Hypophosphatemia Electrolytes replaced Hypercalcemia Stable (5) Paroxysmal A-fib: rate control with diltiazem Continue Xarelto Stable DVT prophylaxis: on Xarelto (6) Hypothyroidism: -TSH is low but free T4 is normal. Levothyroxine decreased to 37.5 mg Will need outpatient TSH in 4 to 6 weeks (7) Depression: -continue home dose citalopram -CODE STATUS is DNR/DNI (previous hospitalist discussed code status with patient's daughter Madison) Admission and Anticipated Discharge Date Admission Date: September 16, 2020 Subjective Pt was seen and examined Sitting in chair with no distress eating applesauce Smiling with no abnormal behavior Look very comfortable Physical Exam Physical Exam: General- No acute distress Head- atraumatic Eyes- PERRL ENT- oropharynx clear Neck- supple, no JVD Lungs- poor air entry Heart- regular rhythm; no murmur Abdomen- normal bowel sounds, soft, nontender Extremities- no calf tenderness Neuro- confused/dementia, move extremities Skin- warm & dry Results & Data Results & Data ([facility]) Vital Signs (Past 12 Hours) Vital Signs Temp Pulse Resp BP Pulse Ox 09/21/20 15:03 36.5 C 59 L 16 108/60 96 09/21/20 07:00 36.5 C 65 20 125/75 98
[2020-09-21] MEDS: DAPTOmycin 200 MG in SYRINGE 0 ML IV SCH (20:08)
[2020-09-22] MEDS: LEVOTHYROXINE SODIUM 25 MCG TABLET PO SCH (05:21)
[2020-09-22] MEDS: CITALOPRAM 20 MG TAB PO SCH (09:14)
[2020-09-22] MEDS: CALCIUM 600MG + VIT D 400 IU TAB PO SCH ×2 (09:16→20:33)
[2020-09-22] MEDS: DOCUSATE SODIUM/SENNA 50/8.6MG TAB PO SCH (09:16)
[2020-09-22] MEDS: dilTIAZem ER 180 MG CAPCR PO SCH (09:16)
[2020-09-22] MEDS: FOLIC ACID 1 MG in SYRINGE 9.8 ML IV SCH (09:18)
[2020-09-22] MEDS: THIAMINE HCL 100 MG in SYRINGE 9 ML IV SCH (09:18)
[2020-09-22] MEDS: RIVAROXABAN 15 MG TAB PO SCH (16:13)
--- NOTE | 2020-09-22 19:21 | Hospitalist Progress Note ---
Date of Service September 22, 2020 Assessment & Plan (1) Dementia: Acute metabolic encephalopathy secondary to dehydration vs UTI History of dementia as per daughter Madison Hunter ([phone]) CT head showed no acute intracranial abnormality Continue PT/OT eval patient was assessed by speech and swallow therapist on 09/16/2020 and her diet has been advanced aspiration precautions, HOB qshift, oral hygiene has been off 1 to 1 observation Stable (2) FAINA (acute kidney injury): Possible related to dehydration due to poor oral intake Creatinine on admission 1.24 Received IVF, creatinine back to baseline UTI UA positive for bacteria Patient was started empiric ceftriaxone on 09/15/2020 Urine cx grew enterococcus durans/hirae that is only sensitive to dapto/Vanco IV received Rocephin x4 days, will d/c abx today Pt is afebrile and no leukocytosis Repeat urine cx grew staph species Starting on IV abx since able to assess for symptoms due to dementia and daughter said that pt has history of recurrent UTI Continue IV dapto for now Will follow urine sensitivity Constipation CT abd pelvis showed moderate fecal retention of the rectum. Mild associated rectal wall thickening with trace perirectal stranding. Colonic diverticulosis without acute diverticulitis. Continue daily senna , colace, prn Miralax (3) Hypernatremia: Serum sodium 147 on presentation, then increased to 150. Na improved to 142 stable (4) Hypokalemia: Hypokalemia K 3.7 today Continue monitor BMP Hypomagnesemia Hypophosphatemia Electrolytes replaced Hypercalcemia Stable (5) Paroxysmal A-fib: rate control with diltiazem Continue Xarelto Stable DVT prophylaxis: on Xarelto (6) Hypothyroidism: -TSH is low but free T4 is normal. Levothyroxine decreased to 37.5 mg Will need outpatient TSH in 4 to 6 weeks (7) Depression: -continue home dose citalopram -CODE STATUS is DNR/DNI (previous hospitalist discussed code status with patient's daughter Madison) Admission and Anticipated Discharge Date Admission Date: September 16, 2020 Subjective Pt was seen and examined Lying in bed with no distress She is a little sleepy today No abnormal behavior as per nurse Physical Exam Physical Exam: General- No acute distress Head- atraumatic Eyes- PERRL ENT- oropharynx clear Neck- supple, no JVD Lungs- poor air entry Heart- regular rhythm; no murmur Abdomen- normal bowel sounds, soft, nontender Extremities- no calf tenderness Neuro- confused/dementia, move extremities Skin- warm & dry Results & Data Results & Data ([facility]) Vital Signs (Past 12 Hours) Vital Signs Temp Pulse Resp BP Pulse Ox 09/22/20 15:00 36.7 C 65 16 101/64 95
[2020-09-22] MEDS: DAPTOmycin 200 MG in SYRINGE 0 ML IV SCH (20:32)
[2020-09-23] MEDS: LEVOTHYROXINE SODIUM 25 MCG TABLET PO SCH (06:00)
[2020-09-23 07:45] LABS: Creatinine Clr Calc Pharmacy 38.8 ml/min; Est GFR (African American) 75.6; Est GFR (Non-African American) 65.2
[2020-09-23] MEDS: THIAMINE HCL 100 MG in SYRINGE 9 ML IV SCH (08:42)
[2020-09-23] MEDS: FOLIC ACID 1 MG in SYRINGE 9.8 ML IV SCH (08:42)
[2020-09-23] MEDS: DOCUSATE SODIUM/SENNA 50/8.6MG TAB PO SCH (08:43)
[2020-09-23] MEDS: CALCIUM 600MG + VIT D 400 IU TAB PO SCH (08:43)
[2020-09-23] MEDS: CITALOPRAM 20 MG TAB PO SCH (08:43)
[2020-09-23] MEDS: dilTIAZem ER 180 MG CAPCR PO SCH (08:43)
--- NOTE | 2020-09-23 15:48 | Hospitalist Progress Note ---
Date of Service September 23, 2020 Assessment & Plan (1) Dementia: Acute metabolic encephalopathy secondary to dehydration vs UTI History of dementia as per daughter Madison Hunter ([phone]) CT head showed no acute intracranial abnormality Continue PT/OT eval patient was assessed by speech and swallow therapist on 09/16/2020 and her diet has been advanced aspiration precautions, HOB qshift, oral hygiene has been off 1 to 1 observation Stable (2) FAINA (acute kidney injury): Possible related to dehydration due to poor oral intake Creatinine on admission 1.24 Received IVF, creatinine back to baseline UTI UA positive for bacteria Patient was started empiric ceftriaxone on 09/15/2020 Urine cx grew enterococcus durans/hirae that is only sensitive to dapto/Vanco IV received Rocephin x4 days, but was discontinued because urine cx was only sensitive to Vanco and Dapto Repeat urine cx grew staph species (enterococcus durans/hirae ) Pt is afebrile and no leukocytosis Dapto IV was starting since unable to assess for symptoms due to dementia and daughter said that pt has history of recurrent UTI Will complete 4 days course of IV dapto abx Clinically stable Constipation CT abd pelvis showed moderate fecal retention of the rectum. Mild associated rectal wall thickening with trace perirectal stranding. Colonic diverticulosis without acute diverticulitis. Continue daily senna , colace, prn Miralax (3) Hypernatremia: Serum sodium 147 on presentation, then increased to 150. Na improved to 142 stable (4) Hypokalemia: Hypokalemia K 3.7 Stable Hypomagnesemia Hypophosphatemia Electrolytes replaced Stable Hypercalcemia Stable (5) Paroxysmal A-fib: rate control with diltiazem Continue Xarelto Stable (6) Hypothyroidism: TSH is low but free T4 is normal. Reviewed outpatient med reconciliation showed levothyroxine changed from 75mcg to 50mcg few weeks ago Will continue Levothyroxine 50mcg for now Check TSH in 4 to 6 weeks (7) Depression: Continue home dose citalopram DVT px on Xarelto CODE STATUS is DNR/DNI (previous hospitalist discussed code status with patient's daughter Madison) Admission and Anticipated Discharge Date Admission Date: September 16, 2020 Subjective Pt was seen and examined Sitting in chair with no distress Smiling when try to interact with her Looks very comfortable Calm and no abnormal behavior Physical Exam Physical Exam: General- No acute distress Head- atraumatic Eyes- PERRL ENT- oropharynx clear Neck- supple, no JVD Lungs- poor air entry Heart- regular rhythm; no murmur Abdomen- normal bowel sounds, soft, nontender Extremities- no calf tenderness Neuro- confused/dementia, move extremities Skin- warm & dry Results & Data Results & Data ([facility]) Vital Signs (Past 12 Hours) Vital Signs Temp Pulse Resp BP Pulse Ox 09/23/20 14:56 36.7 C 84 18 113/78 97 09/23/20 10:30 130/83 09/23/20 06:15 36.9 C 78 22 96
--- NOTE | 2020-09-23 15:53 | Discharge Summary ---
Date of Service September 23, 2020 Admission HPI Per Admitting Provider This is a patient from [facility] with dementia. She was recently discharged from hospitalization in June 2020 for acute pyelonephritis and urinary tract infection. Patient presented to the emergency department with her daughter for an evaluation of altered mental status. Her daughter feels that she is complaining of some lower abdominal pain which is similar to when she is had urinary tract infections in the past and was concerned for more confusion at [facility]. In the ED, patient's main problems as assessed by ED provider was dehydration. Patient was given IV fluids. Patient not able to give history because of her dementia and unclear whether other causes of encephalopathy from dehydration versus any underlying infectious process. Hospitalist notes bacteria in the urine and to start empiric ceftriaxone and infection work up. Patient does not appear to be in severe pain although she needed repositioning by nurse to assess her vital signs. As per daughter Madison there are no other symptoms on review of systems. Her daughter provided past medical history Family History: heart conditions, diabetes mellitus, patient's sister with ovarian cancer that became a colon cancer Past Surgical History: hysterectomy at age 36, no other surgeries Allergies: soreness with statins, but otherwise no other drug or food allergies Primary Care Provider: [facility] Admission Exam Per Admitting Provider Eyes: PERRL, conjunctivae normal, anicteric sclerae ENMT: external ear and nose normal, oropharynx normal Neck: normal visual inspection Respiratory: normal respiratory effort Cardiovascular: + tachycardic (in low 100 bpm) Gastrointestinal: normal bowel sounds, soft, nontender, no hepatosplenomegaly Musculoskeletal: normocephalic and head atraumatic Neurologic: moves all extremities and awake Psychiatric: soft speech, dementia as per her daughter at the bedside, patient cannot give history Principal Diagnosis Dementia: FAINA (acute kidney injury): UTI Constipation Hypernatremia: Hypokalemia Hypomagnesemia Hypophosphatemia Paroxysmal A-fib: Hypothyroidism: Discharge Exam General- No acute distress Head- atraumatic Eyes- PERRL ENT- oropharynx clear Neck- supple, no JVD Lungs- poor air entry Heart- regular rhythm; no murmur Abdomen- normal bowel sounds, soft, nontender Extremities- no calf tenderness Neuro- confused/dementia, move extremities Skin- warm & dry Discharge Data Allergies Allergy/AdvReac Type Severity Reaction Status Date / Time latex Allergy Unknown Unknown Verified 09/15/20 18:26 Elocnyf-Ufc-Mmv Reductase Allergy Unknown Unknown Verified 09/15/20 18:26 Inhibitor Consultations 09/15/20 18:19 ED Decision to Admit Stat 09/15/20 18:44 Consult Case Management - Discharge Planning Routine Ordered Studies 09/15/20 15:15 CT abd pelvis wo con Stat CT head/brain wo con Stat CT head/brain wo con CLINICAL HISTORY: 84 years-old Female with altered. Acutely altered mental status TECHNIQUE: Multiple axial CT images of the head were obtained without contrast. A dose lowering technique was utilized adhering to the principles of ALARA. CT DOSE: 1174.54 mGy.cm COMPARISON: None. FINDINGS: No acute intracranial hemorrhage, midline shift, intracranial mass, hydro cephalus, territorial ischemia or abnormal extra-axial collection. Age-related involutional changes with ex vacuo ventriculomegaly. Extensive white matter hypodensities suggest chronic microvascular ischemic disease. Cerebral vascular calcifications. 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 The calvarium is intact. Small right mastoid effusion. Left mastoid air cells and paranasal sinuses are clear. Soft tissues are unremarkable. Prior bilateral displacement. IMPRESSION: No acute intracranial abnormality. ACT 112: Negative or not required by law. The above report was generated using voice recognition software. It may contain grammatical, syntax or spelling errors. Electronically signed by: Obed Hi M.D. 09/15/2020 5:28 PM Dictated: 09/15/20 1725Transcribed: 09/15/20 1725 XR chest 1V portable HISTORY: 84 years-old Female weakness acute weakness COMPARISON: Chest radiograph 06/14/2020 TECHNIQUE: Portable AP view of the chest FINDINGS: Cardiomediastinal and hilar silhouettes are within normal limits. Calcified plaque of the thoracic aorta. There is no pneumothorax, pleural effusion, airspace consolidation or overt pulmonary edema. Degenerative changes of the shoulders and spine. IMPRESSION: No acute process. ACT 112: Negative or not required by law. The above report was generated using voice recognition software. It may contain grammatical, syntax or spelling errors. Electronically signed by: Obed Hi M.D. 09/15/2020 3:42 PM Dictated: 09/15/20 1541Transcribed: 09/15/[address] WITHOUT CONTRAST HISTORY: Acute lower abdominal pain with altered status lower apin TECHNIQUE: Multiaxial CT images of the abdomen and pelvis were performed without contrast. A dose lowering technique was utilized adhering to the principles of ALARA. COMPARISON STUDY: CT abdomen and pelvis 06/16/2020 FINDINGS: Limited exam without the use of IV contrast, and patient upper extremity positioning with mild respiratory motion artifact. Heart is mildly enlarged. Extensive coronary artery calcifications. Mild bibasilar atelectasis. Calcific granuloma of the basal left lower lobe. There is no pneumatosis or pneumoperitoneum. Spleen, mildly atrophic pancreas, adrenal glands and gallbladder are unremarkable. The unenhanced liver also appears to be within normal limits. Probable cyst of the superior pole right kidney, 2.3 cm. No renal or ureteral calculi or obstructive uropathy. Partial distention of the urinary bladder with mild wall thickening. Uterus appears surgically absent. 2.1 cm cystic focus of the left adnexum is unchanged. Calcified plaque of the abdominal aorta without aneurysm. No adenopathy. There is no bowel obstruction. Moderate fecal retention of the rectum with mild rectal wall thickening and trace perirectal stranding. Colonic diverticulosis without acute diverticulitis. Normal appendix. Unremarkable soft tissues. Mineralized appearance of the bones. Degenerative changes of the spine, pelvis and hips. Lumbar levoscoliosis. No acute fracture. IMPRESSION: 1. No bowel obstruction or pneumoperitoneum. Normal appendix. 2. Moderate fecal retention of the rectum. Mild associated rectal wall thickening with trace perirectal stranding. Correlate clinically to exclude stercoral proctitis. 3. Colonic diverticulosis without acute diverticulitis. 4. Additional findings as above. ACT 112: Negative or not required by law. The above report was generated using voice recognition software. It may contain grammatical, syntax or spelling errors. Electronically signed by: Obed Hi M.D. 09/15/2020 5:42 PM Dictated: 09/15/201736Transcribed: 09/15/201736 Hospital Course (1) Dementia: Acute metabolic encephalopathy secondary to dehydration vs UTI History of dementia as per daughter Madison Hunter ([phone]) CT head showed no acute intracranial abnormality Continue PT/OT eval patient was assessed by speech and swallow therapist on 09/16/2020 and her diet has been advanced aspiration precautions, HOB qshift, oral hygiene has been off 1 to 1 observation Stable (2) FAINA (acute kidney injury): Possible related to dehydration due to poor oral intake Creatinine on admission 1.24 Received IVF, creatinine back to baseline UTI UA positive for bacteria Patient was started empiric ceftriaxone on 09/15/2020 Urine cx grew enterococcus durans/hirae that is only sensitive to dapto/Vanco IV received Rocephin x4 days, but was discontinued because urine cx was only sensitive to Vanco and Dapto Repeat urine cx grew staph species (enterococcus durans/hirae ) Pt is afebrile and no leukocytosis Dapto IV was starting since unable to assess for symptoms due to dementia and daughter said that pt has history of recurrent UTI Will complete 4 days course of IV dapto abx Clinically stable Constipation CT abd pelvis showed moderate fecal retention of the rectum. Mild associated rectal wall thickening with trace perirectal stranding. Colonic diverticulosis without acute diverticulitis. Continue daily senna , colace, prn Miralax (3) Hypernatremia: Serum sodium 147 on presentation, then increased to 150. Na improved to 142 stable (4) Hypokalemia: Hypokalemia K 3.7 Stable Hypomagnesemia Hypophosphatemia Electrolytes replaced Stable Hypercalcemia Stable (5) Paroxysmal A-fib: rate control with diltiazem Continue Xarelto Stable (6) Hypothyroidism: TSH is low but free T4 is normal. Reviewed outpatient med reconciliation showed levothyroxine changed from 75mcg to 50mcg few weeks ago Will continue Levothyroxine 50mcg for now Check TSH in 4 to 6 weeks (7) Depression: Continue home dose citalopram DVT px on Xarelto CODE STATUS is DNR/DNI (previous hospitalist discussed code status with patient's daughter Madison) Total Time Total Time Spent Total Time Spent (In Minutes): 35 minutes Total Time Includes: Examination of the Patient, Discharge Planning, Medication Reconciliation, Communication With Other Providers and Other Discharge Plan Discharge Items Patient Disposition: Personal Senior Living Reason For Visit: DEHYDRATION,FAINA,DEMENTIA Discharge Diagnosis: Dementia: FAINA (acute kidney injury): UTI Constipation Hypernatremia: Hypokalemia Hypomagnesemia Hypophosphatemia Paroxysmal A-fib: Hypothyroidism: Condition on Discharge: Good Activity: Resume your previous activity Non-emergency contact: Primary Care Provider Call non-emergency contact if: you have any medication questions and your temperature is above 101 Follow-up/Referrals: Sindi Chiang [Primary Care Provider] - Diet: Heart Healthy Addtl Attending Provider Instructions: Follow up with your primary care provider at [facility] Check TSH in 4 weeks Fall precaution Seek medical attention if you develop any fever Pending Studies at Discharge: No Stand-Alone Forms: [facility] Skilled Items Patient informed of condition?: Yes DNR: Yes Discharge Level of Care: Other Communicable Disease: No Discharge Prognosis: Stable Lines: None Urinary Catheter: No Medications and DC Order Prescriptions: New polyethylene glycol 3350 [Miralax] 17 gram Powder In Packet 17 g PO DAILY PRN (Reason: constipation) Qty: 30 RF: 0 acetaminophen 325 mg Tablet 650 mg PO Q6H PRN (Reason: pain) Qty: 30 RF: 0 Continued citalopram 10 mg Tablet 5 mg PO QAM RF: 0 folic acid 1 mg Tablet 2 mg PO QAM RF: 0 calcium citrate-vitamin D3 [Calcium Citrate + D] 315-200 mg-unit Tablet 1 tab PO BID RF: 0 fenofibrate nanocrystallized 145 mg Tablet 145 mg PO QAM RF: 0 Xarelto 15 mg Tablet 15 mg PO QAM RF: 0 diltiazem HCl [Tiazac] 180 mg capsule,extended release 24 hr 180 mg PO QAM RF: 0 levothyroxine 50 mcg Tablet 50 mcg PO QAM RF: 0 Discontinued tramadol 50 mg Tablet 25 mg PO Q4H PRN (Reason: Pain) RF: 0 nitrofurantoin macrocrystal 50 mg Capsule 50 mg PO QAM RF: 0 Discharge Orders: Discharge Order (Routine); Ordered 09/23/20 Ordered By: Fab Menard/Other Patient Handouts: Preventing Falls in the Home Admission Data Admit Date/Time: 09/16/20 08:00 Attending Provider: Fab Bruner Admit Provider: Diallo Stover Primary Care Provider: Sindi Chiang Other Providers: Diallo Stover ; [facility] Other Interventions: Discharge Summary Assessment (RN) Last Done: 09/23/20 15:43
[2020-09-23] MEDS: DAPTOmycin 200 MG in SYRINGE 0 ML IV SCH (16:06)
[2020-09-23] MEDS: RIVAROXABAN 15 MG TAB PO SCH (16:08)
== END 2020-09-23 16:39 | disposition home or self-care (01) | DRG 682 ==
LOC: ED 14:58 → 3W 14:58 → SUATTDRO 09-16 08:00